=== PATIENT | female | born 1955 | race African-American/Black ===

== ENCOUNTER 2016-12-18 23:55 | Emergency (ER) | payer OTHER ==
[~2016-12-18] VITALS: Ht 157.5 cm; Wt 68.0 kg
[2016-12-19 00:14] VITALS: BP 96/56
[2016-12-19 01:23] LABS: BASOPHILS % (AUTO) 0.9 % (0.0-2.0); EOSINOPHILS % (AUTO) 1.2 % (0.0-3.0); LYMPHOCYTES % (AUTO) 29.8 % (20.0-45.0); MEAN CORPUSCULAR HEMOGLOBIN 31.9 PG (27.0-31.0); MEAN CORPUSCULAR HGB CONC 30.4 G/DL (32.0-36.0); MEAN CORPUSCULAR VOLUME 105 FL (80-99); MEAN PLATELET VOLUME 7.9 FL (6.5-10.1); MONOCYTES % (AUTO) 15.1 % (1.0-10.0); NEUTROPHILS % (AUTO) 52.9 % (45.0-75.0); PLATELET COUNT 126 K/UL (150-450); RED BLOOD COUNT 3.35 M/UL (4.20-5.40); RED CELL DISTRIBUTION WIDTH 18.5 % (11.6-14.8); WHITE BLOOD COUNT 9.5 K/UL (4.8-10.8)
[2016-12-19 01:39] LABS: CALCIUM 8.8 mg/dL (8.6-10.2); CREATININE 2.1 mg/dL (0.5-0.9); POTASSIUM 3.5 mEQ/L (3.4-4.9)
[2016-12-19 02:17] VITALS: BP 99/51
--- NOTE | 2016-12-19 02:37 | Emergency Room Report ---
History of Present Illness General Chief Complaint: General Complaint Source: Patient, Medical Record, EMS Present Illness HPI Is a 61-year-old female with history of renal failure on hemodialysis. She also has a history of chronic pain and diabetes. Patient presents with chief complaint of hypoglycemia. Per nursing staff was sedated and blood sugar was 35. She was asymptomatic without any altered mental status, diaphoresis, or any other complaint. She was given glucagon and transferred here. Patient denies any fever or chills. Denies any nausea vomiting. Asking for pain medication. No other complaint. Allergies: Coded Allergies: IBUPROFEN (Verified Allergy, Unknown, 12/18/16) PROCHLORPERAZINE (Verified Allergy, Unknown, 12/18/16) Patient History Past Medical History: see triage record, old chart reviewed Past Surgical History: other Pertinent Family History: none Social History: Denies: smoking Now: No Immunizations: other Reviewed Nursing Documentation: PMH: Agreed, PSxH: Agreed Nursing Documentation-PMH Past Medical History: No Stated History Hx Cardiac Problems: Yes - NH,CARDIOMYOPATHY Hx COPD: Yes Hx Diabetes: Yes Hx Dialysis: Yes - ESRD ,[id number] Review of Systems Eye: Denies: eye pain, blurred vision ENT: Denies: ear pain, nose congestion, throat swelling Respiratory: Denies: cough, shortness of breath Cardiovascular: Denies: chest pain, palpitations Gastrointestinal: Denies: abdominal pain, diarrhea, nausea, vomiting Musculoskeletal: Denies: back pain, joint pain Skin: Denies: rash Neurological: Denies: headache, numbness Endocrine: Denies: increased thirst, increased urine Hematologic/Lymphatic: Denies: easy bruising All Other Systems: negative except mentioned in HPI Physical Exam Vital Signs Date Time Temp Pulse Resp B/P (MAP) Pulse Ox O2 Delivery O2 Flow Rate FiO2 12/18/16 23:58 97.5 70 16 115/63 94 Nasal Cannula 2.0 vitals normal Sp02 EP Interpretation: reviewed, normal General Appearance: well appearing, no apparent distress, alert Head: normocephalic, atraumatic Eyes: bilateral eye PERRL, bilateral eye EOMI ENT: hearing grossly normal, normal pharynx Neck: full range of motion, supple, no meningismus Respiratory: chest non-tender, lungs clear, normal breath sounds Cardiovascular #1: regular rate, rhythm, no murmur Gastrointestinal: normal bowel sounds, non tender, no mass, no organomegaly, no bruit, non-distended Musculoskeletal: back normal, gait/station normal, normal range of motion Psychiatric: mood/affect normal Skin: warm/dry Medical Decision Making Diagnostic Impression: Primary Impression: Hypoglycemia ER Course Patient with hypoglycemia. No evidence of hypoglycemia here. No ABGs on the fdc as a sliding scale insulin. I fed her here. Blood glucose been normal range. We'll discharge back to the fdc. Lab Results Impression labs at baseline Last Vital Signs Date Time Temp Pulse Resp B/P (MAP) Pulse Ox O2 Delivery O2 Flow Rate FiO2 12/19/16 02:17 97.5 69 12 99/51 99 Nasal Cannula 2.0 Status: improved Disposition: [facility] Condition: Stable Referrals: NON PHYSICIAN (PCP) MAHAMED LUBIN M.D. Dec 19, 2016 02:37
[2016-12-19 03:14] VITALS: BP 92/67
== END 2016-12-19 03:14 ==
LOC: EDBD 23:55 → EMR 12-19 00:30
DX: E11.649 Type 2 diabetes mellitus with hypoglycemia without coma (principal); N18.6 End stage renal disease; Z99.2 Dependence on renal dialysis; Z88.6 Allergy status to analgesic agent; Z88.8 Allergy status to other drugs, medicaments and biological substances; I25.2 Old myocardial infarction; I42.9 Cardiomyopathy, unspecified; J44.9 Chronic obstructive pulmonary disease, unspecified
CPT/HCPCS: 36415; 80048; 82962; 85025; 99283

== ENCOUNTER 2016-12-23 08:06 | Inpatient (IN) | payer OTHER ==
[2016-12-23] VITALS (7 sets, daily range): BP systolic 86–140; BP diastolic 42–95
[~2016-12-23] VITALS: Ht 162.6 cm; Wt 90.7 kg
--- NOTE | 2016-12-23 08:13 | Emergency Room Report ---
History of Present Illness General Chief Complaint: Abnormal Labs Source: Patient, EMS Present Illness HPI The patient presents with altered level of consciousness. This is associated with a blood glucose of 29. Paramedics were unable to start an IV and they gave her glucagon IM route the patient's consciousness was much better at that time and she was able to tolerate some oral glucose solution. A second blood sugar was in the 50s. She states that she's been nauseated and not been eating well. The patient states this is his third visit for the same problem in the last 2 weeks. She's dialysis patient. She complains about neck and back pain and also a slight headache. She takes no current [place] for these problems. Review of our records reveal that she was here on December 19. At that time her blood sugar before coming in was 39. The her physician felt that she was on insulin and a diabetic. She denies both of these. Review of her medications do not reveal any anti-hyperglycemics or insulin at this time. She denies any fevers, vomiting, diarrhea and dysuria. She still makes urine. She's dialysis shunt on the left arm. The patient denies diabetes or taking any diabetic medications. Allergies: Coded Allergies: ASPIRIN (Unverified Allergy, Unknown, 12/23/16) IBUPROFEN (Verified Allergy, Unknown, 12/18/16) PROCHLORPERAZINE (Verified Allergy, Unknown, 12/18/16) Patient History Past Medical History: see triage record Social History Narrative [place] Reviewed Nursing Documentation: PMH: Agreed, PSxH: Agreed Review of Systems All Other Systems: negative except mentioned in HPI Physical Exam Vital Signs Date Time Temp Pulse Resp B/P (MAP) Pulse Ox O2 Delivery O2 Flow Rate FiO2 12/23/16 07:57 70 14 126/72 Sp02 EP Interpretation: reviewed, normal General Appearance: well appearing, no apparent distress, GCS 15, Chronically Ill Head: normocephalic Eyes: bilateral eye PERRL, bilateral eye conjunctivae pale ENT: moist mucus membranes Neck: supple Respiratory: lungs clear, normal breath sounds Cardiovascular #1: regular rate, rhythm, JVD, edema Cardiovascular #2: 2+ radial (R) Gastrointestinal: normal inspection, normal bowel sounds, non tender, no mass, non-distended Musculoskeletal: back normal, gait/station normal, normal range of motion Neurologic: alert, oriented x3 Skin: normal inspection, warm/dry Procedures Critical Care Time Critical Care Time Total Critical Care Time: 30 min bedside evaluation and treatment excludes procedures (EKG). Reason for critical care: recurrent hypoglycemia, hypotension, repeat evaluation of mentation Possible complications: hypotension, hypertension, NH, shock, arrhythmias, metabolic acidosis, end organ damage, respiratory failure. Interventions: D50W, EJ, fluid bolus, repeat evaluations Course: Patient with hypoglycemia. No IV. EJ. Tx with D50W. Recurrent hypoglycemia, repeat tx X2. Pain treated. Transient hypotension. Improved with fluid bolus. Consultations: nursing staff, EMS, HMO MD, admitting MD Performed by: Dr. Del Valle Tolerated well condition = serious Medical Decision Making Diagnostic Impression: Primary Impression: Hypoglycemia Additional Impressions: ESRD (end stage renal disease) on dialysis Transient hypotension Liver failure Qualified Codes: K72.00 - Acute and subacute hepatic failure without coma ER Course This dialysis nondiabetic patient presents with hypoglycemia. Differential includes occult infection, inadvertent medications, malnutrition, liver failure amongst others. Evaluation will be with EKG, chest x-ray and labs. Cardiac monitoring. Treatment of pain. The patient did have an IV started. An 18-gauge was inserted into the right EJ by me. Patient improved mentation. C/O pain (norco had been given). Morphine ordered. Labs with normal WBC, H/H, renal failure, elevated LFTs, elevated BNP and coags. :Lactate elevated - no evidence of infection. This is felt to be related to recurrent hypoglycema and liver dysfunction. No indications for antibiotics. BS dropped again. D50 repeated. Still low BS D50 repeated and D10W started. BP dropped and small bolus given. Dr. Dsouza ([facility]) states he believes or patient doing this to themselves. Patient denies this. Improved VS and mentation. Admit tele Dr. Haney. Laboratory Tests Test 12/23/16 08:15 12/23/16 12:20 White Blood Count 5.9 K/UL (4.8-10.8) Red Blood Count 3.47 M/UL (4.20-5.40) L Hemoglobin 10.7 G/DL (12.0-16.0) L Hematocrit 36.6 % (37.0-47.0) L Mean Corpuscular Volume 106 FL (80-99) H Mean Corpuscular Hemoglobin 31.0 PG (27.0-31.0) Mean Corpuscular Hemoglobin Concent 29.4 G/DL (32.0-36.0) L Red Cell Distribution Width 19.1 % (11.6-14.8) H Platelet Count 79 K/UL (150-450) L Mean Platelet Volume 8.5 FL (6.5-10.1) Neutrophils (%) (Auto) % (45.0-75.0) Lymphocytes (%) (Auto) % (20.0-45.0) Monocytes (%) (Auto) % (1.0-10.0) Eosinophils (%) (Auto) % (0.0-3.0) Basophils (%) (Auto) % (0.0-2.0) Differential Total Cells Counted 100 Neutrophils % (Manual) 60 % (45-75) Lymphocytes % (Manual) 27 % (20-45) Monocytes % (Manual) 11 % (1-10) H Eosinophils % (Manual) 1 % (0-3) Basophils % (Manual) 1 % (0-2) Band Neutrophils 0 % (0-8) Platelet Estimate Decreased L Platelet Morphology Normal Hypochromasia 2+ Anisocytosis 2+ Macrocytosis 1+ Prothrombin Time 16.4 SEC (9.30-11.50) H Prothrombin Time INR 1.6 (0.9-1.1) H PTT 41 SEC (23-33) H Sodium Level 127 mEQ/L (135-145) L Potassium Level 4.7 mEQ/L (3.4-4.9) Chloride Level 84 mEQ/L (98-107) L Carbon Dioxide Level 28 mEQ/L (20-30) Anion Gap 15 (5-15) Blood Urea Nitrogen 19 mg/dL (7-23) Creatinine 3.7 mg/dL (0.5-0.9) H Estimate Glomerular Filtration Rate 15.0 mL/min (>60) Glucose Level 130 mg/dL (74-106) H Lactic Acid Level 2.50 mmol/L (0.66-2.22) H 3.40 mmol/L (0.66-2.22) H Calcium Level 8.9 mg/dL (8.6-10.2) Total Bilirubin 2.2 mg/dL (0.0-1.2) H Direct Bilirubin 1.5 mg/dL (0.1-0.3) H Aspartate Amino Transferase (AST) 127 U/L (5-40) H Alanine Aminotransferase (ALT) 143 U/L (3-33) H Alkaline Phosphatase 165 U/L (35-104) H Total Creatine Kinase 79 U/L (26-140) Troponin I < 0.30 ng/mL (<=0.30) Pro-B-Type Natriuretic Peptide 87131 pg/mL (0-125) H Total Protein 6.8 g/dL (6.6-8.7) Albumin 3.6 g/dL (3.5-5.2) Globulin 3.2 g/dL Albumin/Globulin Ratio 1.1 (1.0-2.7) EKG Diagnostic Results Rate: normal Rhythm: NSR ST Segments: no acute changes - R axis Rhythm Strip Diag. Results EP Interpretation: yes Rhythm: NSR, no PVC's, no ectopy Chest X-Ray Diagnostic Results Chest X-Ray Diagnostic Results : Chest X-Ray Ordered: Yes # of Views/Limited/Complete: 1 View Indication: Other EP Interpretation: Yes Interpretation: no consolidation, no effusion, no pneumothorax, no acute cardiopulmonary disease Impression: No acute disease Electronically Signed by: Arian Del Valle MD Last Vital Signs Date Time Temp Pulse Resp B/P (MAP) Pulse Ox O2 Delivery O2 Flow Rate FiO2 12/23/16 21:00 97.1 74 19 140/95 94 Nasal Cannula 2.0 Status: improved Disposition: ADMITTED INPATIENT Condition: Serious Arian Del Valle M.D. Dec 23, 2016 08:13
[2016-12-23] MEDS ORDERED: Norco 5mg/325mg tab ORAL ONE (08:15)
[2016-12-23 08:38] LABS: MEAN CORPUSCULAR HGB CONC 29.4 G/DL (32.0-36.0); MEAN CORPUSCULAR VOLUME 106 FL (80-99); MEAN PLATELET VOLUME 8.5 FL (6.5-10.1); PLATELET COUNT 79 K/UL (150-450); RED BLOOD COUNT 3.47 M/UL (4.20-5.40); RED CELL DISTRIBUTION WIDTH 19.1 % (11.6-14.8); WHITE BLOOD COUNT 5.9 K/UL (4.8-10.8)
[2016-12-23] MEDS ORDERED: HEPARIN SO5000 UNIT2 SUBQ (08:46)
[2016-12-23] MEDS ORDERED: MAGNESIUM400 M1 PO (08:46)
[2016-12-23] MEDS ORDERED: DOCUSATE SODIU100 MG ORAL (08:46)
[2016-12-23] MEDS ORDERED: GABAPENTIN300 MG ORAL (08:46)
[2016-12-23] MEDS ORDERED: ALBUTEROL2.5 MG/3 M INH (08:46)
[2016-12-23] MEDS ORDERED: ZOLPIDEM TARTRAT5 MG ORAL (08:46)
[2016-12-23] MEDS ORDERED: FOLIC ACID1 MG ORAL (08:46)
[2016-12-23] MEDS ORDERED: ATENOLOL25 MG ORAL (08:46)
[2016-12-23] MEDS ORDERED: ISOSORBIDE MONO10 MG PO (08:46)
[2016-12-23] MEDS ORDERED: CYCLOBENZAPRINE10 MG ORAL (08:46)
[2016-12-23] MEDS ORDERED: CALCIUM500 M3 PO (08:46)
[2016-12-23] MEDS ORDERED: ATORVASTATIN CA20 MG ORAL (08:46)
[2016-12-23] MEDS ORDERED: CATAPRES0.1 MG ORAL (08:46)
[2016-12-23 08:49] LABS: ALANINE AMINOTRANSFERASE 143 U/L (3-33); ALBUMIN/GLOBULIN RATIO 1.1 (1.0-2.7); ANION GAP 15 (5-15); ASPARTATE AMINO TRANSFERASE 127 U/L (5-40); CALCIUM 8.9 mg/dL (8.6-10.2); CARBON DIOXIDE 28 mEQ/L (20-30); CHLORIDE 84 mEQ/L (98-107); CREATININE 3.7 mg/dL (0.5-0.9); HEMOLYSIS 12; POTASSIUM 4.7 mEQ/L (3.4-4.9); SODIUM 127 mEQ/L (135-145); TOTAL PROTEIN 6.8 g/dL (6.6-8.7); TROPONIN I < 0.30 ng/mL (<=0.30)
[2016-12-23 08:52] LABS: REFLEX LACTIC ACID YES OR NO YES
[2016-12-23 08:58] LABS: INR 1.6 (0.9-1.1); PROTHROMBIN TIME 16.4 SEC (9.30-11.50)
[2016-12-23 09:03] LABS: BILIRUBIN,DIRECT 1.5 mg/dL (0.1-0.3)
[2016-12-23 10:08] LABS: BAND NEUTROPHILS % (MANUAL) 0 % (0-8); BASOPHILS % (MANUAL) 1 % (0-2); EOSINOPHILS % (MANUAL) 1 % (0-3); LYMPHOCYTES % (MANUAL) 27 % (20-45); NEUTROPHILS % (MANUAL) 60 % (45-75); PLATELET ESTIMATE DECREASED; PLATELET MORPHOLOGY NORMAL; TOTAL CELLS COUNTED 100
[2016-12-23 10:09] LABS: ANISOCYTOSIS 2+; HYPOCHROMASIA 2+; MACROCYTES 1+
--- NOTE | 2016-12-23 11:10 | Diagnostic Imaging Report ---
Indication: Dyspnea Comparison: None A single view chest radiograph was obtained. Findings: No definite infiltrate or pulmonary vascular congestion identified. The hilar vessels are prominent. The heart is enlarged. The aorta is mildly enlarged consistent with atherosclerotic vascular disease. The bones are osteopenic. Impression: No acute disease
[2016-12-23] MEDS ORDERED: Morphine Sulfate 2mg/ml Inj IVP ONE (11:30)
[2016-12-23] MEDS ORDERED: NS 250 ML IVPB ONE (12:00)
[2016-12-23] MEDS ORDERED: Tubing IV Cassette IV ONE (12:01)
[2016-12-23] MEDS ORDERED: Dextrose 10% 1,000 ML IV SCH (12:45)
[2016-12-23] MEDS ORDERED: Mylanta II UD 30ml ORAL PRN (15:00)
[2016-12-23] MEDS ORDERED: Albuterol/Ipratropium 3ml neb HHN PRN (15:30)
[2016-12-23] MEDS: NovoLOG Insulin Flexpen SUBQ SCH ×2 (16:30→21:00)
[2016-12-23] MEDS: Cyclobenzaprine 10mg Tab ORAL SCH (18:28)
[2016-12-23] MEDS ORDERED: Miralax 17gm pkt ORAL PRN (21:00)
[2016-12-23] MEDS ORDERED: Zolpidem 5mg tab ORAL PRN (21:00)
[2016-12-23] MEDS ORDERED: Heparin 5000 units/ml inj SUBQ SCH (21:00)
--- NOTE | 2016-12-23 22:39 | History and Physical ---
History of Present Illness General Date patient seen: Dec 23, 2016 Reason for Hospitalization: Abnormal Labs Present Illness HPI 61 year old female on dialysis presented with altered level of consciousness with a blood glucose of 29. Paramedics were unable to start an IV and they gave her glucagon IM route the patient's consciousness was much better at that time and she was able to tolerate some oral glucose solution. A second blood sugar was in the 50s. She states that she's been nauseated and not been eating well. She denies any fevers, vomiting, diarrhea and dysuria. She still makes urine. She's dialysis shunt on the left arm. The patient denies diabetes or taking any diabetic medications. Allergies: Coded Allergies: ASPIRIN (Unverified Allergy, Unknown, 12/23/16) IBUPROFEN (Verified Allergy, Unknown, 12/18/16) PROCHLORPERAZINE (Verified Allergy, Unknown, 12/18/16) Medication History Scheduled Atenolol* (Tenormin*), 25 MG ORAL DAILY, (Reported) Atorvastatin Calcium* (Atorvastatin Calcium*), 10 MG ORAL BEDTIME, (Reported) Calcium Carbonate (Calcium), 667 MG PO TID, (Reported) Cyclobenzaprine Hcl* (Flexeril*), 5 MG ORAL THREE TIMES A DAY, (Reported) Folic Acid* (Folic Acid*), 1 MG ORAL DAILY, (Reported) Gabapentin* (Gabapentin*), 300 MG ORAL BID, (Reported) Heparin Sod (Porcine) (Heparin Sodium*), 5,000 UNITS SUBQ EVERY 12 HOURS, ( Reported) Isosorbide Mononitrate (Isosorbide Mononitrate), 30 MG PO DAILY, (Reported) Scheduled PRN Albuterol Sulfate* (Albuterol Sulfate Hhn*), 3 ML INH Q4H PRN for Shortness of Breath, (Reported) Clonidine Hcl* (Catapres*), 0.1 MG ORAL EVERY 4 HOURS PRN for For High Blood Pressure, (Reported) Docusate Sodium* (Docusate Sodium*), 100 MG ORAL TWICE A DAY PRN for Constipation, (Reported) Zolpidem Tartrate* (Zolpidem Tartrate*), 5 MG ORAL BEDTIME PRN for Insomnia, ( Reported) Miscellaneous Medications Magnesium Oxide (Magnesium), 400 MG PO, (Reported) Patient History Healthcare decision maker Resuscitation status Full Code Advanced Directive on File No Past Medical/Surgical History Past Medical/Surgical History: (1) Cholestasis (2) Hypoalbuminemia (3) Anemia (4) ESRD (end stage renal disease) on dialysis (5) Liver failure Review of Systems Constitutional: Reports: no symptoms Eye: Reports: no symptoms ENT: Reports: no symptoms Respiratory: Reports: no symptoms Cardiovascular: Reports: no symptoms Physical Exam General Appearance: WD/WN, no apparent distress Lines, tubes and drains: peripheral, central line HEENT: normocephalic, atraumatic Neck: non-tender, normal alignment Respiratory/Chest: chest wall non-tender, lungs clear Breasts: no masses Cardiovascular/Chest: normal peripheral pulses Abdomen: normal bowel sounds, non tender Genitourinary/Rectal: normal genital exam, heme negative stool Extremities: normal range of motion Last 24 Hour Vital Signs Date Time Temp Pulse Resp B/P (MAP) Pulse Ox O2 Delivery O2 Flow Rate FiO2 12/23/16 21:00 97.1 74 19 140/95 94 Nasal Cannula 2.0 12/23/16 20:00 97.1 19 140/95 94 Nasal Cannula 2.0 12/23/16 19:27 97.5 12/23/16 15:40 97.5 70 18 135/72 98 Nasal Cannula 2.0 12/23/16 15:25 72 16 124/83 97 Nasal Cannula 2.0 12/23/16 14:00 72 16 124/83 97 Nasal Cannula 2.0 12/23/16 12:30 68 16 124/87 95 Nasal Cannula 2.0 12/23/16 12:00 66 16 103/82 95 Nasal Cannula 2.0 12/23/16 11:30 72 16 86/42 95 Nasal Cannula 2.0 12/23/16 07:57 70 14 126/72 Intake and Output 12/23/16 12/24/16 19:00 07:00 Intake Total 570 ml Balance 570 ml Intake Oral 320 ml IV Total 250 ml # Bowel Movements 1 Laboratory Tests Test 12/23/16 08:15 12/23/16 12:20 White Blood Count 5.9 K/UL (4.8-10.8) Red Blood Count 3.47 M/UL (4.20-5.40) L Hemoglobin 10.7 G/DL (12.0-16.0) L Hematocrit 36.6 % (37.0-47.0) L Mean Corpuscular Volume 106 FL (80-99) H Mean Corpuscular Hemoglobin 31.0 PG (27.0-31.0) Mean Corpuscular Hemoglobin Concent 29.4 G/DL (32.0-36.0) L Red Cell Distribution Width 19.1 % (11.6-14.8) H Platelet Count 79 K/UL (150-450) L Mean Platelet Volume 8.5 FL (6.5-10.1) Neutrophils (%) (Auto) % (45.0-75.0) Lymphocytes (%) (Auto) % (20.0-45.0) Monocytes (%) (Auto) % (1.0-10.0) Eosinophils (%) (Auto) % (0.0-3.0) Basophils (%) (Auto) % (0.0-2.0) Differential Total Cells Counted 100 Neutrophils % (Manual) 60 % (45-75) Lymphocytes % (Manual) 27 % (20-45) Monocytes % (Manual) 11 % (1-10) H Eosinophils % (Manual) 1 % (0-3) Basophils % (Manual) 1 % (0-2) Band Neutrophils 0 % (0-8) Platelet Estimate Decreased L Platelet Morphology Normal Hypochromasia 2+ Anisocytosis 2+ Macrocytosis 1+ Prothrombin Time 16.4 SEC (9.30-11.50) H Prothromb Time International Ratio 1.6 (0.9-1.1) H Activated Partial Thromboplast Time 41 SEC (23-33) H Sodium Level 127 mEQ/L (135-145) L Potassium Level 4.7 mEQ/L (3.4-4.9) Chloride Level 84 mEQ/L (98-107) L Carbon Dioxide Level 28 mEQ/L (20-30) Anion Gap 15 (5-15) Blood Urea Nitrogen 19 mg/dL (7-23) Creatinine 3.7 mg/dL (0.5-0.9) H Estimat Glomerular Filtration Rate 15.0 mL/min (>60) Glucose Level 130 mg/dL (74-106) H Lactic Acid Level 2.50 mmol/L (0.66-2.22) H 3.40 mmol/L (0.66-2.22) H Calcium Level 8.9 mg/dL (8.6-10.2) Total Bilirubin 2.2 mg/dL (0.0-1.2) H Direct Bilirubin 1.5 mg/dL (0.1-0.3) H Aspartate Amino Transf (AST/SGOT) 127 U/L (5-40) H Alanine Aminotransferase (ALT/SGPT) 143 U/L (3-33) H Alkaline Phosphatase 165 U/L (35-104) H Total Creatine Kinase 79 U/L (26-140) Troponin I < 0.30 ng/mL (<=0.30) Pro-B-Type Natriuretic Peptide 50176 pg/mL (0-125) H Total Protein 6.8 g/dL (6.6-8.7) Albumin 3.6 g/dL (3.5-5.2) Globulin 3.2 g/dL Albumin/Globulin Ratio 1.1 (1.0-2.7) Height (Feet): 5 Height (Inches): 4.00 Weight (Pounds): 200 Medications Current Medications Medications (Trade) Dose Ordered Sig/Donald Route PRN Reason Start Time Stop Time Status Last Admin Dose Admin Acetaminophen (Tylenol) 650 mg Q4H PRN ORAL fever>100.5 12/23/16 15:00 01/22/17 14:59 Al Hydroxide/Mg Hydroxide (Mylanta II) 30 ml Q6H PRN ORAL dyspepsia 12/23/16 15:00 01/22/17 14:59 Albuterol/ Ipratropium (DuoNeb 0.5-3(2.5)mg/3ml) 3 ml Q6H PRN HHN dyspnea 12/23/16 15:30 12/28/16 15:29 Atenolol (Tenormin) 25 mg DAILY ORAL 12/24/16 09:00 01/23/17 08:59 Atorvastatin Calcium (Lipitor) 10 mg BEDTIME ORAL 12/23/16 21:00 01/22/17 20:59 12/23/16 21:41 Clonidine HCl (Catapres) 0.1 mg Q4H PRN ORAL for sbp more than 160 12/23/16 15:00 01/22/17 14:59 Cyclobenzaprine HCl (Flexeril) 5 mg THREE TIMES A DAY ORAL 12/23/16 18:00 01/22/17 17:59 12/23/16 18:28 Dextrose (Dextrose 50%) STAT PRN IV Hypoglycemia 12/23/16 15:00 01/22/17 14:59 Furosemide (Lasix) 100 mg Q8H PRN IV dyspnea 12/23/16 15:30 01/22/17 15:29 Gabapentin (Neurontin) 300 mg BID ORAL 12/23/16 18:00 01/22/17 17:59 12/23/16 18:23 Insulin Aspart (NovoLOG) BEFORE MEALS AND HS SUBQ 12/23/16 16:30 01/22/17 16:29 Morphine Sulfate (Morphine Sulfate) 1 mg Q4H PRN IVP For Pain 12/23/16 15:30 12/30/16 15:29 Ondansetron HCl (Zofran) 4 mg Q6H PRN IVP Nausea & Vomiting 12/23/16 15:00 01/22/17 14:59 Polyethylene Glycol (Miralax) 17 gm HSPRN PRN ORAL Constipation 12/23/16 21:00 01/22/17 20:59 Zolpidem Tartrate (Ambien) 5 mg HSPRN PRN ORAL Insomnia 12/23/16 21:00 12/30/16 20:59 Assessment/Plan Problem List: (1) Encephalopathy acute ICD Codes: G93.40 - Encephalopathy, unspecified SNOMED: 3844153 (2) Hypoglycemia ICD Codes: E16.2 - Hypoglycemia, unspecified SNOMED: 927019681 (3) Anemia ICD Codes: D64.9 - Anemia, unspecified SNOMED: 525524841 (4) Coagulopathy ICD Codes: D68.9 - Coagulation defect, unspecified SNOMED: 21232725 (5) Liver failure ICD Codes: K72.90 - Hepatic failure, unspecified without coma SNOMED: 84954946 Qualifiers: Qualified Codes: K72.00 - Acute and subacute hepatic failure without coma (6) ESRD (end stage renal disease) on dialysis ICD Codes: N18.6 - End stage renal disease; Z99.2 - Dependence on renal dialysis SNOMED: 406339241 Assessment/Plan d5 IV fluids HD by nephrology endocrinology w/ru anemia w/u symptomatic treatment SANCHEZ MURGUIA Dec 23, 2016 22:39
[2016-12-24] VITALS: BP 125/96
[2016-12-24 03:39] LABS: KETONES,URINE NEGATIVE (NEGATIVE); LEUKOCYTE ESTERASE ,URINE 3+ (NEGATIVE); NITRITE,URINE NEGATIVE (NEGATIVE); PH,URINE 5 (4.5-8.0); PROTEIN,URINE 2+ (NEGATIVE); UROBILINOGEN,URINE 4 MG/DL (0.0-1.0)
[2016-12-24 04:00] VITALS: BP 122/88
[2016-12-24 04:36] LABS: APPEARANCE,URINE SLIGHTLY CLOUDY
[2016-12-24 04:53] LABS: BACTERIA,URINE FEW /HPF; SQUAMOUS EPITHELIAL CELL,UR MANY /LPF (NONE/OCC)
[2016-12-24 04:54] LABS: ICTOTEST POSITIVE; YEAST,URINE MANY /HPF
[2016-12-24] MEDS: NovoLOG Insulin Flexpen SUBQ SCH ×4 (06:23→20:35)
[2016-12-24 07:08] LABS: INR 1.5 (0.9-1.1); PROTHROMBIN TIME 15.5 SEC (9.30-11.50)
[2016-12-24 07:24] LABS: LACTATE DEHYDROGENASE 320 U/L (135-230)
[2016-12-24 07:28] LABS: THYROID STIMULATING HORMONE 5.89 uIU/mL (0.300-4.500)
[2016-12-24 07:29] LABS: MEAN CORPUSCULAR HEMOGLOBIN 31.9 PG (27.0-31.0); MEAN CORPUSCULAR HGB CONC 30.3 G/DL (32.0-36.0); MEAN CORPUSCULAR VOLUME 105 FL (80-99); PLATELET COUNT 86 K/UL (150-450); RED BLOOD COUNT 3.41 M/UL (4.20-5.40); RED CELL DISTRIBUTION WIDTH 18.8 % (11.6-14.8); WHITE BLOOD COUNT 5.9 K/UL (4.8-10.8)
[2016-12-24 07:31] LABS: CALCIUM 9.6 mg/dL (8.6-10.2); CHOLESTEROL/HDL RATIO 6.1 (3.3-4.4); CREATININE 4.1 mg/dL (0.5-0.9); GLOMERULAR FILTRATION RATE 13.5 mL/min (>60); POTASSIUM 5.3 mEQ/L (3.4-4.9); TOTAL PROTEIN 7.2 g/dL (6.6-8.7)
[2016-12-24 07:43] LABS: HEMOLYSIS 30; IRON 103 ug/dL (37-145); TOTAL IRON BINDING CAPACITY 200 ug/dL (250-400)
[2016-12-24 07:47] LABS: BILIRUBIN,DIRECT 1.4 mg/dL (0.1-0.3)
[2016-12-24 07:57] LABS: HEMOGLOBIN A1C 4.6 % (< 6.0)
[2016-12-24 08:11] LABS: PATH BLOOD SMEAR/OMC SEND TO PATHOLOGIST; RETICULOCYTE COUNT 2.3 % (0.0-2.0)
[2016-12-24 08:21] VITALS: BP 122/64
[2016-12-24] MEDS: Atenolol 25mg tab ORAL SCH (08:23)
[2016-12-24] MEDS: Cyclobenzaprine 10mg Tab ORAL SCH ×3 (08:25→18:48)
[2016-12-24 09:14] LABS: ERYTHROCYTE SEDIMENTATION RATE 18 MM/HR (0-30)
[2016-12-24 09:38] LABS: ANISOCYTOSIS 1+; BAND NEUTROPHILS % (MANUAL) 0 % (0-8); BASOPHILS % (MANUAL) 0 % (0-2); BURR CELLS 1+; EOSINOPHILS % (MANUAL) 1 % (0-3); HYPOCHROMASIA 1+; LYMPHOCYTES % (MANUAL) 49 % (20-45); MACROCYTES 1+; NEUTROPHILS % (MANUAL) 39 % (45-75); NUCLEATED RED BLOOD CELLS 1 /100 WBC; PLATELET ESTIMATE DECREASED; PLATELET MORPHOLOGY NORMAL; TARGET CELLS 1+; TEAR DROP CELLS 1+; TOTAL CELLS COUNTED 100
--- NOTE | 2016-12-24 10:16 | Consultation ---
Consult Note Consult Note asked to eval for dialysis management- poor historian- The patient presents with altered level of consciousness. This is associated with a blood glucose of 29. Paramedics were unable to start an IV and they gave her glucagon IM route the patient's consciousness was much better at that time and she was able to tolerate some oral glucose solution. A second blood sugar was in the 50s. She states that she's been nauseated and not been eating well. The patient states this is his third visit for the same problem in the last 2 weeks. She's dialysis patient. She complains about neck and back pain and also a slight headache. She takes no current [place] for these problems. Review of our records reveal that she was here on December 19. At that time her blood sugar before coming in was 39. The her physician felt that she was on insulin and a diabetic. She denies both of these. Review of her medications do not reveal any anti-hyperglycemics or insulin at this time. She denies any fevers, vomiting, diarrhea and dysuria. She still makes urine. She's dialysis shunt on the left arm. The patient denies diabetes or taking any diabetic medications. Allergies: Coded Allergies: ASPIRIN (Unverified Allergy, Unknown, 12/23/16) IBUPROFEN (Verified Allergy, Unknown, 12/18/16) PROCHLORPERAZINE (Verified Allergy, Unknown, 12/18/16) interviewed- examined- data reviewed Assessment/Plan ESRD (end stage renal disease) on dialysis, today Na 125 and K high Transient hypotension on admit leading to encephalopathy Liver failure, elevated LFTs Anemia Plan: HD and UF today trini Keep BP and BS in check per orders diet to renal gastric support LIANA STEVENS Dec 24, 2016 10:16
[2016-12-24 12:20] VITALS: BP 95/66
--- NOTE | 2016-12-24 13:25 | Wound Care Consultation ---
Wound Assessment Wound Assessment : Wound Number: 1 Wound Present on Admission: Yes New Wound: No Status Change of Wound: No Wound Location Body Site Modif: right, lower, anterior Wound Location Body Site: knee Wound Type: traumatic injury Edmundo Test: Does not Edmundo Wound Thickness: Full Thickness Wound Length: 3.5 Wound Width: 6.5 Wound Depth: utd Percent of Wound Black/Brown: 100 - eschar Wound Drainage Amount: None Wound Drainage Odor: None/Absent Tissue Surrounding Wound: Indurated Wound General Appearance: Blackened Wound Comment #1 Right anterior lower knee area, wound with black soft eschar adhered to wound bed. According to Pt, she had a fall incident and she injured her knee. Recommendation -Cleanse with saline, pat dry, paint with Betadine, cover with bordered gauze daily and PRN soiled/dislodged -Keep clean and dry -Turn and reposition -Optimize nutrition -Assess and f/u accordingly for any changes ALEJA BYRNE RN Dec 24, 2016 13:25
--- NOTE | 2016-12-24 15:02 | Diagnostic Imaging Report ---
Indication: Abnormal renal function tests Technique: Grayscale and duplex images of the kidneys, retroperitoneum, and bladder were obtained. Comparison:None Findings: Right kidney measures 8.8 cm in length. Left kidney measures 10.1 cm in length. Right kidney demonstrates increased echogenicity. Left kidney demonstrates normal echogenicity. No hydronephrosis. The right kidney demonstrates multiple cysts.. Normal inferior vena cava. Bladder is normal. Incidentally noted is a small amount of ascites fluid. There is incidental finding of gallstones. The gallbladder is nondistended, but the gallbladder wall appears markedly thickened. The common bile duct is dilated, measuring 10 mm in diameter. Technologist reports sonographic Brantley's sign is normal Impression: This negative for hydronephrosis Echogenic right kidney, likely indicative of medical renal disease Right renal cysts Incidental finding of ascites Incidental finding of gallstones. There is gallbladder wall thickening. Probably due to whatever process is causing ascites, suggest hepatocellular disease, but acute cholecystitis is not excludable. Consider nuclear medicine hepatobiliary scan if there is high clinical suspicion Mildly dilated common bile duct. Correlate with liver function tests, considered hepatobiliary nuclear scan if there is high clinical suspicion.
[2016-12-24 16:00] VITALS: BP 131/97
--- NOTE | 2016-12-24 18:39 | Pulmonology Progress Note ---
Assessment/Plan Problems: (1) ESRD (end stage renal disease) on dialysis (2) Hypoglycemia Assessment/Plan w/u in progress sliding scale endo evaluation pending D50 for hypoglycemia Subjective ROS Limited/Unobtainable: No Interval Events: no new complains Allergies: Coded Allergies: ASPIRIN (Unverified Allergy, Unknown, 12/23/16) IBUPROFEN (Verified Allergy, Unknown, 12/18/16) PROCHLORPERAZINE (Verified Allergy, Unknown, 12/18/16) Objective Last 24 Hour Vital Signs Date Time Temp Pulse Resp B/P (MAP) Pulse Ox O2 Delivery O2 Flow Rate FiO2 12/24/16 16:15 Nasal Cannula 2.0 12/24/16 16:00 97.0 75 18 131/97 99 Nasal Cannula 3.0 12/24/16 14:13 Nasal Cannula 2.0 12/24/16 12:20 97.9 72 20 95/66 100 Nasal Cannula 2.0 12/24/16 09:24 98.0 12/24/16 08:23 76 122/64 12/24/16 08:21 98.0 76 17 122/64 99 Nasal Cannula 2.0 12/24/16 08:21 97.9 78 18 122/64 99 Room Air 12/24/16 04:00 97.5 71 20 122/88 93 Nasal Cannula 2.0 12/24/16 00:00 97.2 70 21 125/96 93 Nasal Cannula 2.0 12/23/16 21:00 97.1 74 19 140/95 94 Nasal Cannula 2.0 12/23/16 20:00 97.1 19 140/95 94 Nasal Cannula 2.0 Intake and Output 12/24/16 12/25/16 19:00 07:00 Intake Total 480 ml Output Total 2545 ml Balance -2065 ml Intake Oral 480 ml Output Urine Total 0 ml Hemodialysis UF 2545 ml General Appearance: WD/WN, no acute distress HEENT: atraumatic Respiratory/Chest: chest wall non-tender, lungs clear Breasts: no masses Cardiovascular: normal peripheral pulses Abdomen: normal bowel sounds, soft, non tender Genitourinary: normal external genitalia Extremities: no cyanosis Neurologic/Psychiatric: compliance lead II-XII grossly normal Laboratory Tests 12/24/16 03:23: Urine Color Eloisa, Urine Appearance Slightly cloudy, Urine pH 5, Urine Specific [place] 1.015, Urine Protein 2+H, Urine Glucose (UA) Negative, Urine Ketones Negative, Urine Occult Blood 2+H, Urine Nitrite Negative, Urine Bilirubin 2+H, Urine Ictotest Positive, Urine Urobilinogen 4H, Urine Leukocyte Esterase 3+H, Urine RBC 2-4H, Urine WBC 2-4, Urine Squamous Epithelial Cells ManyH, Urine Bacteria Few, Urine Yeast ManyH, Urine Eosinophils Few, Urine Random Sodium 11, Urine Potassium Timed 88 12/24/16 06:15: White Blood Count 5.9, Red Blood Count 3.41L, Hemoglobin 10.9L, Hematocrit 36.0L , Mean Corpuscular Volume 105H, Mean Corpuscular Hemoglobin 31.9H, Mean Corpuscular Hemoglobin Concent 30.3L, Red Cell Distribution Width 18.8H, Platelet Count 86L, Mean Platelet Volume 11.0H, Neutrophils (%) (Auto) , Lymphocytes (%) (Auto) , Monocytes (%) (Auto) , Eosinophils (%) (Auto) , Basophils (%) (Auto) , Differential Total Cells Counted 100, Neutrophils % ( Manual) 39L, Lymphocytes % (Manual) 49H, Monocytes % (Manual) 11H, Eosinophils % (Manual) 1, Basophils % (Manual) 0, Band Neutrophils 0, Nucleated Red Blood Cells 1, Platelet Estimate DecreasedL, Platelet Morphology Normal, Hypochromasia 1+, Anisocytosis 1+, Macrocytosis 1+, Target Cells 1+, Tear Drop Cells 1+, Prasanna Cells 1+, Erythrocyte Sedimentation Rate 18, Reticulocyte Count 2.3H, Prothrombin Time 15.5H, Prothromb Time International Ratio 1.5H, Activated Partial Thromboplast Time 42H, Sodium Level 125L, Potassium Level 5.3H , Chloride Level 82L, Carbon Dioxide Level 31H, Anion Gap 12, Blood Urea Nitrogen 23, Creatinine 4.1H, Estimat Glomerular Filtration Rate 13.5, Glucose Level 69L, Hemoglobin A1c 4.6, Uric Acid 7.0, Calcium Level 9.6, Iron Level 103 , Total Iron Binding Capacity 200L, Percent Iron Saturation 52H, Unsaturated Iron Binding 97L, Total Bilirubin 2.2H, Direct Bilirubin 1.4H, Aspartate Amino Transf (AST/SGOT) 102H, Alanine Aminotransferase (ALT/SGPT) 125H, Alkaline Phosphatase 179H, Lactate Dehydrogenase 320H, Total Creatine Kinase 76, Total Protein 7.2, Albumin 3.7, Globulin 3.5, Albumin/Globulin Ratio 1.0, Triglycerides Level 81, Cholesterol Level 116, LDL Cholesterol 81, HDL Cholesterol 19, Cholesterol/HDL Ratio 6.1H, Carcinoembryonic Antigen 4.9H, Vitamin B12 Level > 2000H, Folate [Pending], Thyroid Stimulating Hormone (TSH) 5.890H Current Medications Medications (Trade) Dose Ordered Sig/Donald Route PRN Reason Start Time Stop Time Status Last Admin Dose Admin Acetaminophen (Tylenol) 650 mg Q4H PRN ORAL fever>100.5 12/23/16 15:00 01/22/17 14:59 Albuterol/ Ipratropium (DuoNeb 0.5-3(2.5)mg/3ml) 3 ml Q6H PRN HHN dyspnea 12/23/16 15:30 12/28/16 15:29 Atenolol (Tenormin) 25 mg DAILY ORAL 12/24/16 09:00 01/23/17 08:59 12/24/16 08:23 Atorvastatin Calcium (Lipitor) 10 mg BEDTIME ORAL 12/23/16 21:00 01/22/17 20:59 12/23/16 21:41 Clonidine HCl (Catapres) 0.1 mg Q4H PRN ORAL for sbp more than 160 12/23/16 15:00 01/22/17 14:59 Cyclobenzaprine HCl (Flexeril) 5 mg THREE TIMES A DAY ORAL 12/23/16 18:00 01/22/17 17:59 12/24/16 08:25 Dextrose (Dextrose 50%) STAT PRN IV Hypoglycemia 12/23/16 15:00 01/22/17 14:59 12/24/16 17:51 Gabapentin (Neurontin) 300 mg BID ORAL 12/23/16 18:00 01/22/17 17:59 12/24/16 08:22 Insulin Aspart (NovoLOG) BEFORE MEALS AND HS SUBQ 12/23/16 16:30 01/22/17 16:29 Morphine Sulfate (Morphine Sulfate) 1 mg Q4H PRN IVP For Pain 12/23/16 15:30 12/30/16 15:29 Ondansetron HCl (Zofran) 4 mg Q6H PRN IVP Nausea & Vomiting 12/23/16 15:00 01/22/17 14:59 Pantoprazole (Protonix) 40 mg DAILY ORAL 12/24/16 10:30 01/23/17 10:29 12/24/16 11:27 Polyethylene Glycol (Miralax) 17 gm HSPRN PRN ORAL Constipation 12/23/16 21:00 01/22/17 20:59 Zolpidem Tartrate (Ambien) 5 mg HSPRN PRN ORAL Insomnia 12/23/16 21:00 12/30/16 20:59 SANCHEZ MURGUIA Dec 24, 2016 18:39
[2016-12-24] MEDS: Morphine Sulfate 2mg/ml Inj IVP PRN (19:52)
[2016-12-24 20:00] VITALS: BP 119/74
--- NOTE | 2016-12-24 23:58 | Consultation ---
Consult Note Consult Note ID DIC [id number] LORENZA HUSTON M.D. Dec 24, 2016 23:58
[2016-12-25] VITALS: BP 92/57
[2016-12-25] MEDS ORDERED: Azithromycin 500mg Inj IV ONE (01:14)
[2016-12-25] MEDS: Azithromycin 500 MG in D5W 275 ML IV SCH (01:40)
[2016-12-25 04:00] VITALS: BP 103/64
[2016-12-25] MEDS: Morphine Sulfate 2mg/ml Inj IVP PRN (04:01)
[2016-12-25] MEDS: NovoLOG Insulin Flexpen SUBQ SCH ×3 (06:05→16:30)
[2016-12-25 07:19] LABS: MEAN CORPUSCULAR HEMOGLOBIN 31.2 PG (27.0-31.0); MEAN CORPUSCULAR HGB CONC 29.7 G/DL (32.0-36.0); MEAN CORPUSCULAR VOLUME 105 FL (80-99); MEAN PLATELET VOLUME 11.9 FL (6.5-10.1); PLATELET COUNT 71 K/UL (150-450); RED BLOOD COUNT 3.45 M/UL (4.20-5.40); RED CELL DISTRIBUTION WIDTH 18.9 % (11.6-14.8); WHITE BLOOD COUNT 6.2 K/UL (4.8-10.8)
[2016-12-25 07:39] LABS: ALANINE AMINOTRANSFERASE 96 U/L (3-33); ALBUMIN/GLOBULIN RATIO 0.9 (1.0-2.7); ANION GAP 12 (5-15); ASPARTATE AMINO TRANSFERASE 78 U/L (5-40); CARBON DIOXIDE 30 mEQ/L (20-30); CHLORIDE 85 mEQ/L (98-107); CREATININE 3.3 mg/dL (0.5-0.9); CRP QUANT 4.2 mg/dL (< 0.5); GLOMERULAR FILTRATION RATE 17.2 mL/min (>60); HEMOLYSIS 6; MAGNESIUM 2.1 mg/dL (1.7-2.5); PHOSPHORUS 3.6 mg/dL (2.5-4.8); POTASSIUM 4.8 mEQ/L (3.4-4.9); SODIUM 127 mEQ/L (135-145); TOTAL PROTEIN 6.8 g/dL (6.6-8.7); URIC ACID 5.8 mg/dL (3.0-7.5)
[2016-12-25 08:00] VITALS: BP 116/64
[2016-12-25 08:11] LABS: BILIRUBIN,DIRECT 1.6 mg/dL (0.1-0.3)
--- NOTE | 2016-12-25 08:31 | Consultation ---
DATE OF CONSULTATION: 12/25/2016 INFECTIOUS DISEASES CONSULTATION CONSULTING PHYSICIAN: Shady Bowles M.D. REFERRING PHYSICIAN: Darius Haney M.D. Reason For Consultation: Evaluation of the patient for possible sepsis. History Of Present Illness: The patient is a 61-year-old female, who was brought to the hospital due to altered level of consciousness. The patient was found to have hypoglycemia with blood glucose of 29. The patient responded with glucagon IM injection. Infectious Diseases consultation has been requested for evaluation of the patient for possible pneumonia versus sepsis. The patient has no fever or chills, however, the patient is complaining of having some cough in the last two weeks before admission with white sputum production. Past Medical History: End-stage renal disease, on hemodialysis, COPD, and diabetes. MEDICATIONS: Off of antibiotics. ALLERGIES: Aspirin, ibuprofen, prochlorperazine. SOCIAL HISTORY: Negative for alcohol, drug abuse, or smoking. FAMILY HISTORY: Noncontributory. PHYSICAL EXAMINATION: Vital Signs: Temperature 97 degrees, blood pressure 190/74, pulse 72, and respiratory rate 18. HEENT: No pale conjunctivae. No icterus. NECK: No lymphadenopathy. CHEST: Clear. HEART: S1 and S2. ABDOMEN: Soft. EXTREMITIES: No cyanosis. NEUROLOGIC: Awake and alert. Laboratory and diagnostic Data: White cells 5.9, hemoglobin 10.9, and platelets 86,000. UA unremarkable. BUN 23 and creatinine 4.4. AST 102, ALT 125, and alkaline phosphatase 179. Ultrasound of the kidney, ascites, gallstone, and gallbladder wall thickening. Chest x-ray, [facility]. ASSESSMENT: 1. The patient is a 61-year-old female with chronic obstructive pulmonary disease exacerbation/bronchitis. 2. Transaminitis, rule out chronic hepatitis. 3. Rule out cholecystitis, ultrasound shows gallbladder wall thickening and gallstones. 4. Rule out bacteremia in view of being on hemodialysis. PLAN: 1. We will start the patient on IV Zithromax. 2. Monitor CBC. 3. Monitor BMP. 4. HIDA scan. 5. Hepatitis panel. 6. Monitor blood culture. 7. Based on the patient's clinical course and labs, we will do further recommendation. Thank you, Dr. Haney, for allowing me to participate in the care of this patient. I will follow the patient with you during this hospitalization. Shady Bowles M.D. DR: ERICA JOB#: [id number] CC:
[2016-12-25 08:55] LABS: BAND NEUTROPHILS % (MANUAL) 0 % (0-8); BASOPHILS % (MANUAL) 0 % (0-2); EOSINOPHILS % (MANUAL) 4 % (0-3); HYPOCHROMASIA 1+; LYMPHOCYTES % (MANUAL) 40 % (20-45); NEUTROPHILS % (MANUAL) 52 % (45-75); PLATELET ESTIMATE DECREASED; PLATELET MORPHOLOGY NORMAL; POLYCHROMASIA 1+; TOTAL CELLS COUNTED 100
[2016-12-25 08:56] LABS: ANISOCYTOSIS 1+; MACROCYTES 1+
[2016-12-25] MEDS: Atenolol 25mg tab ORAL SCH (09:00)
[2016-12-25] MEDS: Cyclobenzaprine 10mg Tab ORAL SCH ×3 (09:33→18:12)
--- NOTE | 2016-12-25 09:51 | General Progress Note ---
Assessment/Plan Status: unchanged Assessment/Plan ESRD (end stage renal disease) on dialysis, today Na 127 and K now normal Transient hypotension on admit leading to encephalopathy, improving Liver failure, elevated LFTs Anemia Plan: HD and UF in am again Keep BP and BS in check per orders diet to renal gastric support Subjective ROS Limited/Unobtainable: No Constitutional: Reports: malaise, weakness Gastrointestinal/Abdominal: Reports: abdominal pain Allergies: Coded Allergies: ASPIRIN (Unverified Allergy, Unknown, 12/23/16) IBUPROFEN (Verified Allergy, Unknown, 12/18/16) PROCHLORPERAZINE (Verified Allergy, Unknown, 12/18/16) Objective Last 24 Hour Vital Signs Date Time Temp Pulse Resp B/P (MAP) Pulse Ox O2 Delivery O2 Flow Rate FiO2 12/25/16 09:00 71 116/64 12/25/16 08:00 97.9 71 17 116/64 95 Room Air 12/25/16 04:00 98.1 75 18 103/64 95 Room Air 12/25/16 00:00 97.3 78 20 92/57 99 Nasal Cannula 2.0 12/24/16 20:00 97.7 77 20 119/74 97 Room Air 12/24/16 16:15 Nasal Cannula 2.0 12/24/16 16:00 97.0 75 18 131/97 99 Nasal Cannula 3.0 12/24/16 14:13 Nasal Cannula 2.0 12/24/16 12:20 97.9 72 20 95/66 100 Nasal Cannula 2.0 Laboratory Tests 12/25/16 06:20: White Blood Count 6.2, Red Blood Count 3.45L, Hemoglobin 10.8L, Hematocrit 36.2L , Mean Corpuscular Volume 105H, Mean Corpuscular Hemoglobin 31.2H, Mean Corpuscular Hemoglobin Concent 29.7L, Red Cell Distribution Width 18.9H, Platelet Count 71L, Mean Platelet Volume 11.9H, Neutrophils (%) (Auto) , Lymphocytes (%) (Auto) , Monocytes (%) (Auto) , Eosinophils (%) (Auto) , Basophils (%) (Auto) , Differential Total Cells Counted 100, Neutrophils % ( Manual) 52, Lymphocytes % (Manual) 40, Monocytes % (Manual) 4, Eosinophils % ( Manual) 4H, Basophils % (Manual) 0, Band Neutrophils 0, Platelet Estimate DecreasedL, Platelet Morphology Normal, Polychromasia 1+, Hypochromasia 1+, Anisocytosis 1+, Macrocytosis 1+, Sodium Level 127L, Potassium Level 4.8, Chloride Level 85L, Carbon Dioxide Level 30, Anion Gap 12, Blood Urea Nitrogen 18, Creatinine 3.3H, Estimat Glomerular Filtration Rate 17.2, Glucose Level 133H , Uric Acid 5.8, Calcium Level 9.0, Phosphorus Level 3.6, Magnesium Level 2.1, Total Bilirubin 2.4H, Direct Bilirubin 1.6H, Gamma Glutamyl Transpeptidase 121H , Aspartate Amino Transf (AST/SGOT) 78H, Alanine Aminotransferase (ALT/SGPT) 96H , Alkaline Phosphatase 172H, Total Creatine Kinase 79, C-Reactive Protein, Quantitative 4.2H, Pro-B-Type Natriuretic Peptide [id number], Total Protein 6.8, Albumin 3.3L, Globulin 3.5, Albumin/Globulin Ratio 0.9L, Hepatitis A IgM Antibody [Pending], Hepatitis B Surface Antigen [Pending], Hepatitis B Core IgM Antibody [Pending], Hepatitis C Antibody [Pending] Height (Feet): 5 Height (Inches): 4.00 Weight (Pounds): 200 General Appearance: lethargic, mild distress Cardiovascular: normal rate Respiratory/Chest: decreased breath sounds Abdomen: other - obese Objective other PE not changed LIANA STEVENS Dec 25, 2016 09:51
--- NOTE | 2016-12-25 11:57 | GI Initial Consult Note ---
History of Present Illness General Date patient seen: Dec 25, 2016 Time patient seen: 11:56 Reason for Hospitalization: Abnormal Labs Referring physician: SANCHEZ MURGUIA Reason for Consultation: ABNORMAL LFTs Present Illness HPI The patient presents with altered level of consciousness. This is associated with a blood glucose of 29. Paramedics were unable to start an IV and they gave her glucagon IM route the patient's consciousness was much better at that time and she was able to tolerate some oral glucose solution. A second blood sugar was in the 50s. She states that she's been nauseated and not been eating well. The patient states this is his third visit for the same problem in the last 2 weeks. She's dialysis patient. She complains about neck and back pain and also a slight headache. She takes no current [place] for these problems. Review of our records reveal that she was here on December 19. At that time her blood sugar before coming in was 39. The her physician felt that she was on insulin and a diabetic. She denies both of these. Review of her medications do not reveal any anti-hyperglycemics or insulin at this time. She denies any fevers, vomiting, diarrhea and dysuria. She still makes urine. She's dialysis shunt on the left arm. The patient denies diabetes or taking any diabetic medications. GI Consult. HPI as noted above. GI consulted for abdominal LFTs. ROS limited , patient seen on floor awake A&O NAD with no active s/sx of N/V/D. The patient presents today with anemia, elevated LFTs, elevated GGT, elevated iron levels, elevated CEA, and hypoalbuminemia. Unknown history of endoscopic procedures. Home Meds Reported Medications Calcium Carbonate (CALCIUM) 500 Mg Tab.chew, 667 MG PO TID, TAB 12/23/16 Atenolol* (TENORMIN*) 25 Mg Tablet, 25 MG ORAL DAILY, TAB 12/23/16 Zolpidem Tartrate* (ZOLPIDEM TARTRATE*) 5 Mg Tablet, 5 MG ORAL BEDTIME Y for Insomnia, TAB 0 Refills 12/23/16 Cyclobenzaprine Hcl* (FLEXERIL*) 10 Mg Tablet, 5 MG ORAL THREE TIMES A DAY, TAB 12/23/16 Gabapentin* (GABAPENTIN*) 300 Mg Capsule, 300 MG ORAL BID, CAP 12/23/16 Folic Acid* (FOLIC ACID*) 1 Mg Tablet, 1 MG ORAL DAILY, TAB 12/23/16 Atorvastatin Calcium* (ATORVASTATIN CALCIUM*) 20 Mg Tablet, 10 MG ORAL BEDTIME, TAB 12/23/16 Isosorbide Mononitrate (ISOSORBIDE MONONITRATE) 10 Mg Tablet, 30 MG PO DAILY, TAB 12/23/16 Magnesium Oxide (MAGNESIUM) 400 Mg Capsule, 400 MG PO, CAP 12/23/16 Albuterol Sulfate* (ALBUTEROL SULFATE HHN*) 2.5 Mg/3 Ml Vial.neb, 3 ML INH Q4H Y for Shortness of Breath, EA 12/23/16 Heparin Sod (Porcine) (HEPARIN SODIUM*) 5 000/1 Ml Vial, 5000 UNITS SUBQ EVERY 12 HOURS, VIAL 12/23/16 Docusate Sodium* (DOCUSATE SODIUM*) 100 Mg Capsule, 100 MG ORAL TWICE A DAY Y for Constipation, CAP 12/23/16 Clonidine Hcl* (CATAPRES*) 0.1 Mg Tablet, 0.1 MG ORAL EVERY 4 HOURS Y for For High Blood Pressure, TAB 12/23/16 Med list reviewed/reconciled: Yes Allergies: Coded Allergies: ASPIRIN (Unverified Allergy, Unknown, 12/23/16) IBUPROFEN (Verified Allergy, Unknown, 12/18/16) PROCHLORPERAZINE (Verified Allergy, Unknown, 12/18/16) Patient History PMH Narrative End-stage renal disease, on hemodialysis, COPD, and diabetes. Social History: Denies: smoking, alcohol use, drug use, other Review of Systems All Other Systems: negative except mentioned in HPI Physical Exam Vital Signs Date Time Temp Pulse Resp B/P (MAP) Pulse Ox O2 Delivery O2 Flow Rate FiO2 12/23/16 07:57 70 14 126/72 12/23/16 11:30 95 Nasal Cannula 2.0 12/23/16 15:40 97.5 Sp02 EP Interpretation: reviewed Labs Laboratory Tests Test 12/25/16 06:20 White Blood Count 6.2 K/UL (4.8-10.8) Red Blood Count 3.45 M/UL (4.20-5.40) L Hemoglobin 10.8 G/DL (12.0-16.0) L Hematocrit 36.2 % (37.0-47.0) L Mean Corpuscular Volume 105 FL (80-99) H Mean Corpuscular Hemoglobin 31.2 PG (27.0-31.0) H Mean Corpuscular Hemoglobin Concent 29.7 G/DL (32.0-36.0) L Red Cell Distribution Width 18.9 % (11.6-14.8) H Platelet Count 71 K/UL (150-450) L Mean Platelet Volume 11.9 FL (6.5-10.1) H Neutrophils (%) (Auto) % (45.0-75.0) Lymphocytes (%) (Auto) % (20.0-45.0) Monocytes (%) (Auto) % (1.0-10.0) Eosinophils (%) (Auto) % (0.0-3.0) Basophils (%) (Auto) % (0.0-2.0) Differential Total Cells Counted 100 Neutrophils % (Manual) 52 % (45-75) Lymphocytes % (Manual) 40 % (20-45) Monocytes % (Manual) 4 % (1-10) Eosinophils % (Manual) 4 % (0-3) H Basophils % (Manual) 0 % (0-2) Band Neutrophils 0 % (0-8) Platelet Estimate Decreased L Platelet Morphology Normal Polychromasia 1+ Hypochromasia 1+ Anisocytosis 1+ Macrocytosis 1+ Sodium Level 127 mEQ/L (135-145) L Potassium Level 4.8 mEQ/L (3.4-4.9) Chloride Level 85 mEQ/L (98-107) L Carbon Dioxide Level 30 mEQ/L (20-30) Anion Gap 12 (5-15) Blood Urea Nitrogen 18 mg/dL (7-23) Creatinine 3.3 mg/dL (0.5-0.9) H Estimat Glomerular Filtration Rate 17.2 mL/min (>60) Glucose Level 133 mg/dL (74-106) H Uric Acid 5.8 mg/dL (3.0-7.5) Calcium Level 9.0 mg/dL (8.6-10.2) Phosphorus Level 3.6 mg/dL (2.5-4.8) Magnesium Level 2.1 mg/dL (1.7-2.5) Total Bilirubin 2.4 mg/dL (0.0-1.2) H Direct Bilirubin 1.6 mg/dL (0.1-0.3) H Gamma Glutamyl Transpeptidase 121 U/L (5-36) H Aspartate Amino Transf (AST/SGOT) 78 U/L (5-40) H Alanine Aminotransferase (ALT/SGPT) 96 U/L (3-33) H Alkaline Phosphatase 172 U/L (35-104) H Total Creatine Kinase 79 U/L (26-140) C-Reactive Protein, Quantitative 4.2 mg/dL (< 0.5) H Pro-B-Type Natriuretic Peptide 40314 pg/mL (0-125) H Total Protein 6.8 g/dL (6.6-8.7) Albumin 3.3 g/dL (3.5-5.2) L Globulin 3.5 g/dL Albumin/Globulin Ratio 0.9 (1.0-2.7) L Hepatitis A IgM Antibody Pending Hepatitis B Surface Antigen Pending Hepatitis B Core IgM Antibody Pending Hepatitis C Antibody Pending General Appearance: well appearing, no apparent distress Head: normocephalic EENT: normal ENT inspection Neck: supple Respiratory: normal breath sounds, no respiratory distress Cardiovascular: normal rate, no JVD Gastrointestinal: normal inspection, non tender, normal bowel sounds Rectal: deferred Musculoskeletal: back normal Neurologic: normal inspection, alert Psychiatric: normal inspection Skin: normal inspection, normal color, no rash, warm/dry Lymphatic: normal inspection, no adenopathy Current Medications Current Medications Medications (Trade) Dose Ordered Sig/Donald Route PRN Reason Start Time Stop Time Status Last Admin Dose Admin Acetaminophen (Tylenol) 650 mg Q4H PRN ORAL fever>100.5 12/23/16 15:00 01/22/17 14:59 Albuterol/ Ipratropium (DuoNeb 0.5-3(2.5)mg/3ml) 3 ml Q6H PRN HHN dyspnea 12/23/16 15:30 12/28/16 15:29 Atenolol (Tenormin) 25 mg DAILY ORAL 12/24/16 09:00 01/23/17 08:59 12/24/16 08:23 Atorvastatin Calcium (Lipitor) 10 mg BEDTIME ORAL 12/23/16 21:00 01/22/17 20:59 12/24/16 19:51 Azithromycin 500 mg/Dextrose 275 ml @ 275 mls/hr Q24HRS IV 12/25/16 01:00 12/31/16 01:59 12/25/16 01:40 Cyclobenzaprine HCl (Flexeril) 5 mg THREE TIMES A DAY ORAL 12/23/16 18:00 01/22/17 17:59 12/25/16 09:33 Dextrose (Dextrose 50%) STAT PRN IV Hypoglycemia 12/23/16 15:00 01/22/17 14:59 12/25/16 11:30 Gabapentin (Neurontin) 300 mg BID ORAL 12/23/16 18:00 01/22/17 17:59 12/25/16 09:30 Insulin Aspart (NovoLOG) BEFORE MEALS AND HS SUBQ 12/23/16 16:30 01/22/17 16:29 Morphine Sulfate (Morphine Sulfate) 1 mg Q4H PRN IVP For Pain 12/23/16 15:30 12/30/16 15:29 12/25/16 04:01 Ondansetron HCl (Zofran) 4 mg Q6H PRN IVP Nausea & Vomiting 12/23/16 15:00 01/22/17 14:59 Pantoprazole (Protonix) 40 mg DAILY ORAL 12/24/16 10:30 01/23/17 10:29 12/25/16 09:30 Polyethylene Glycol (Miralax) 17 gm HSPRN PRN ORAL Constipation 12/23/16 21:00 01/22/17 20:59 Zolpidem Tartrate (Ambien) 5 mg HSPRN PRN ORAL Insomnia 12/23/16 21:00 12/30/16 20:59 GI: Plan Problems: (1) Cholestasis (2) Anemia (3) Hypoalbuminemia (4) Elevated CEA (5) Liver failure Plan iron elevation elevated CEA 4.9 elevated LFTs >> fu abdominal U/S and hepatitis panel anemia work up OB stool r/o GI bleed monitor H&H, prn transfusions ppi DM mgmt PT evaluation fu labs Discussed with Dr. Foley. Thank you for referring this patient, we will follow. Shanell Oneill N.P. Dec 25, 2016 11:57
[2016-12-25 12:00] VITALS: BP 121/64
--- NOTE | 2016-12-25 13:24 | Diagnostic Imaging Report ---
Indication: Abnormal liver function tests and renal function tests Technique: Curtis-scale and duplex images of the upper abdomen were obtained Comparison: Findings: A small amount of ascites fluid is present Gallbladder images gallstones and sludge. The gallbladder wall is thickened, measuring up to 7 mm thick. Sonographic Brantley's sign is negative. Common bile duct measures 14 mm in diameter. No intrahepatic biliary ductal dilatation. Liver demonstrates normal echogenicity, no focal abnormality. It is enlarged. There is a 3 cm cyst within the right hepatic lobe the tip Portal vein and hepatic veins are patent. Pancreas is unremarkable. Spleen is unremarkable except for an accessory splenule. Left kidney measures 13 cm in length. Right kidney measures 9.7 cm length. Both kidneys demonstrate mildly increased echogenicity There is no hydronephrosis. Right kidney demonstrates a 15 mm cyst . Non-aneurysmal abdominal aorta . Impression: Trace ascites Gallstones. There is gallbladder wall thickening. This is probably due whatever process is causing the ascites, but possibility of acute cholecystitis should also be considered. Consider nuclear medicine hepatobiliary scan for further evaluation if there is high clinical suspicion Dilated common bile duct. Downstream obstruction not excludable. Consider MRCP for further evaluation if clinically indicated. Hepatomegaly Bilateral echogenic kidneys, consistent with medical renal disease Right renal and right lobe hepatic cysts incidentally noted Incidental finding of accessory spleen
--- NOTE | 2016-12-25 16:03 | Pulmonology Progress Note ---
Assessment/Plan Problems: (1) Encephalopathy acute (2) Hypoglycemia (3) Anemia (4) Coagulopathy (5) Liver failure (6) ESRD (end stage renal disease) on dialysis Assessment/Plan GI work up in process endo consult still pending hd by nephrology Subjective ROS Limited/Unobtainable: No Constitutional: Reports: no symptoms HEENT: Repors: no symptoms Respiratory: Reports: no symptoms Allergies: Coded Allergies: ASPIRIN (Unverified Allergy, Unknown, 12/23/16) IBUPROFEN (Verified Allergy, Unknown, 12/18/16) PROCHLORPERAZINE (Verified Allergy, Unknown, 12/18/16) Objective Last 24 Hour Vital Signs Date Time Temp Pulse Resp B/P (MAP) Pulse Ox O2 Delivery O2 Flow Rate FiO2 12/25/16 15:06 96.8 12/25/16 12:00 96.8 73 18 121/64 94 Room Air 12/25/16 09:00 71 116/64 12/25/16 08:00 97.9 71 17 116/64 95 Room Air 12/25/16 04:00 98.1 75 18 103/64 95 Room Air 12/25/16 00:00 97.3 78 20 92/57 99 Nasal Cannula 2.0 12/24/16 20:00 97.7 77 20 119/74 97 Room Air 12/24/16 16:15 Nasal Cannula 2.0 General Appearance: WD/WN HEENT: normocephalic, anicteric Respiratory/Chest: chest wall non-tender, lungs clear Breasts: no masses Cardiovascular: normal peripheral pulses, normal rate Abdomen: normal bowel sounds, soft, non tender Genitourinary: normal external genitalia Extremities: no cyanosis Skin: no rash Microbiology Date/Time Source Procedure Growth Status 12/23/16 14:18 Nasal Nares MRSA Culture - Final NO METHICILLIN RESISTANT STAPH AUREUS... Complete 12/24/16 03:23 Urine,Clean Catch Urine Culture - Preliminary Resulted 12/23/16 14:18 Rectum VRE Culture - Final Enterococcus Faecium - Vre Complete Laboratory Tests 12/25/16 06:20: White Blood Count 6.2, Red Blood Count 3.45L, Hemoglobin 10.8L, Hematocrit 36.2L , Mean Corpuscular Volume 105H, Mean Corpuscular Hemoglobin 31.2H, Mean Corpuscular Hemoglobin Concent 29.7L, Red Cell Distribution Width 18.9H, Platelet Count 71L, Mean Platelet Volume 11.9H, Neutrophils (%) (Auto) , Lymphocytes (%) (Auto) , Monocytes (%) (Auto) , Eosinophils (%) (Auto) , Basophils (%) (Auto) , Differential Total Cells Counted 100, Neutrophils % ( Manual) 52, Lymphocytes % (Manual) 40, Monocytes % (Manual) 4, Eosinophils % ( Manual) 4H, Basophils % (Manual) 0, Band Neutrophils 0, Platelet Estimate DecreasedL, Platelet Morphology Normal, Polychromasia 1+, Hypochromasia 1+, Anisocytosis 1+, Macrocytosis 1+, Sodium Level 127L, Potassium Level 4.8, Chloride Level 85L, Carbon Dioxide Level 30, Anion Gap 12, Blood Urea Nitrogen 18, Creatinine 3.3H, Estimat Glomerular Filtration Rate 17.2, Glucose Level 133H , Uric Acid 5.8, Calcium Level 9.0, Phosphorus Level 3.6, Magnesium Level 2.1, Total Bilirubin 2.4H, Direct Bilirubin 1.6H, Gamma Glutamyl Transpeptidase 121H , Aspartate Amino Transf (AST/SGOT) 78H, Alanine Aminotransferase (ALT/SGPT) 96H , Alkaline Phosphatase 172H, Total Creatine Kinase 79, C-Reactive Protein, Quantitative 4.2H, Pro-B-Type Natriuretic Peptide 03456X, Total Protein 6.8, Albumin 3.3L, Globulin 3.5, Albumin/Globulin Ratio 0.9L, Hepatitis A IgM Antibody [Pending], Hepatitis B Surface Antigen [Pending], Hepatitis B Core IgM Antibody [Pending], Hepatitis C Antibody [Pending] Current Medications Medications (Trade) Dose Ordered Sig/Donald Route PRN Reason Start Time Stop Time Status Last Admin Dose Admin Acetaminophen (Tylenol) 650 mg Q4H PRN ORAL fever>100.5 12/23/16 15:00 01/22/17 14:59 Albuterol/ Ipratropium (DuoNeb 0.5-3(2.5)mg/3ml) 3 ml Q6H PRN HHN dyspnea 12/23/16 15:30 12/28/16 15:29 Atenolol (Tenormin) 25 mg DAILY ORAL 12/24/16 09:00 01/23/17 08:59 12/24/16 08:23 Atorvastatin Calcium (Lipitor) 10 mg BEDTIME ORAL 12/23/16 21:00 01/22/17 20:59 12/24/16 19:51 Azithromycin 500 mg/Dextrose 275 ml @ 275 mls/hr Q24HRS IV 12/25/16 01:00 12/31/16 01:59 12/25/16 01:40 Cyclobenzaprine HCl (Flexeril) 5 mg THREE TIMES A DAY ORAL 12/23/16 18:00 01/22/17 17:59 12/25/16 14:07 Dextrose (Dextrose 50%) STAT PRN IV Hypoglycemia 12/23/16 15:00 01/22/17 14:59 12/25/16 11:30 Gabapentin (Neurontin) 300 mg BID ORAL 12/23/16 18:00 01/22/17 17:59 12/25/16 09:30 Insulin Aspart (NovoLOG) BEFORE MEALS AND HS SUBQ 12/23/16 16:30 01/22/17 16:29 Morphine Sulfate (Morphine Sulfate) 1 mg Q4H PRN IVP For Pain 12/23/16 15:30 12/30/16 15:29 12/25/16 04:01 Ondansetron HCl (Zofran) 4 mg Q6H PRN IVP Nausea & Vomiting 12/23/16 15:00 01/22/17 14:59 Pantoprazole (Protonix) 40 mg DAILY ORAL 12/24/16 10:30 01/23/17 10:29 12/25/16 09:30 Polyethylene Glycol (Miralax) 17 gm HSPRN PRN ORAL Constipation 12/23/16 21:00 01/22/17 20:59 Zolpidem Tartrate (Ambien) 5 mg HSPRN PRN ORAL Insomnia 12/23/16 21:00 12/30/16 20:59 SANCHEZ MURGUIA Dec 25, 2016 16:03
--- NOTE | 2016-12-25 16:12 | Diagnostic Imaging Report ---
Indication: Abdominal pain Technique: IV administration 5.4 mCi 99M technetium mebrofenin. Images obtained over the liver for one hour. Delayed images at 4 hours also obtained Comparison: Reference made to ultrasound from earlier the same day Findings: There is somewhat slow but steady hepatic tracer uptake. Intrahepatic ducts are visualized at 13 minutes. Activity is seen within the gallbladder 19 minutes. Extrahepatic ducts are seen at 16 minutes. At one hour, no definite excretion into the duodenum is demonstrated although the common bile duct and gallbladder appear largely filled. However, delayed imaging at 4 hours indicates excretion of the preponderance of the tracer into small bowel. Impression: Negative for evidence of cystic duct obstruction/acute cholecystitis. Recently described gallbladder wall thickening is presumably due to hemodynamic derangements Common bile duct is demonstrated to be patent. Excretion of tracer into the small bowel is somewhat delayed but tracer eventually gets through. Significance of this finding in view of the biliary ductal dilatation demonstrated on recent ultrasound is uncertain. Possibly baseline for this patient. Could indicate sphincter spasm if patient is taking narcotics. This has also been reported in [facility]
[2016-12-25] MEDS ORDERED: Phytonadione 10 MG in D5W 55 ML IVPB ONE (17:00)
--- NOTE | 2016-12-25 18:44 | General Progress Note ---
Assessment/Plan Problem List: (1) ESRD (end stage renal disease) on dialysis ICD Codes: N18.6 - End stage renal disease; Z99.2 - Dependence on renal dialysis SNOMED: 616576547 (2) Hypoglycemia ICD Codes: E16.2 - Hypoglycemia, unspecified SNOMED: 474225594 (3) Liver failure ICD Codes: K72.90 - Hepatic failure, unspecified without coma SNOMED: 88449424 Qualifiers: Qualified Codes: K72.00 - Acute and subacute hepatic failure without coma (4) Elevated CEA ICD Codes: R97.0 - Elevated carcinoembryonic antigen [CEA] SNOMED: 97797222, 240828633 Assessment/Plan severe hypoglycemia w/o hx of DM - not on diabetic medications - adrenal insufficiency will be ruled out by sending fasting ACTH and serum Cortisol - blood glucose monitoring in order - DC insulin coverage - hypoglycemia protocol TSH is mildly elevated which could be due to state of illness - repeat TSH - assess free T4 and ATPO Subjective Allergies: Coded Allergies: ASPIRIN (Unverified Allergy, Unknown, 12/23/16) IBUPROFEN (Verified Allergy, Unknown, 12/18/16) PROCHLORPERAZINE (Verified Allergy, Unknown, 12/18/16) All Systems: reviewed and negative except above Subjective patient admitted with severe hypoglycemia with neuroglycopenic symptoms no hx of DM and not on any diabetic medications this is a recurrent issue hx of ESRD on HD noted to have elevated LFTs - GI service consulted Objective Last 24 Hour Vital Signs Date Time Temp Pulse Resp B/P (MAP) Pulse Ox O2 Delivery O2 Flow Rate FiO2 12/25/16 16:00 97.5 72 18 Room Air 12/25/16 15:06 96.8 12/25/16 12:00 96.8 73 18 121/64 94 Room Air 12/25/16 09:00 71 116/64 12/25/16 08:00 97.9 71 17 116/64 95 Room Air 12/25/16 04:00 98.1 75 18 103/64 95 Room Air 12/25/16 00:00 97.3 78 20 92/57 99 Nasal Cannula 2.0 12/24/16 20:00 97.7 77 20 119/74 97 Room Air Laboratory Tests 12/25/16 06:20: White Blood Count 6.2, Red Blood Count 3.45L, Hemoglobin 10.8L, Hematocrit 36.2L , Mean Corpuscular Volume 105H, Mean Corpuscular Hemoglobin 31.2H, Mean Corpuscular Hemoglobin Concent 29.7L, Red Cell Distribution Width 18.9H, Platelet Count 71L, Mean Platelet Volume 11.9H, Neutrophils (%) (Auto) , Lymphocytes (%) (Auto) , Monocytes (%) (Auto) , Eosinophils (%) (Auto) , Basophils (%) (Auto) , Differential Total Cells Counted 100, Neutrophils % ( Manual) 52, Lymphocytes % (Manual) 40, Monocytes % (Manual) 4, Eosinophils % ( Manual) 4H, Basophils % (Manual) 0, Band Neutrophils 0, Platelet Estimate DecreasedL, Platelet Morphology Normal, Polychromasia 1+, Hypochromasia 1+, Anisocytosis 1+, Macrocytosis 1+, Sodium Level 127L, Potassium Level 4.8, Chloride Level 85L, Carbon Dioxide Level 30, Anion Gap 12, Blood Urea Nitrogen 18, Creatinine 3.3H, Estimat Glomerular Filtration Rate 17.2, Glucose Level 133H , Uric Acid 5.8, Calcium Level 9.0, Phosphorus Level 3.6, Magnesium Level 2.1, Total Bilirubin 2.4H, Direct Bilirubin 1.6H, Gamma Glutamyl Transpeptidase 121H , Aspartate Amino Transf (AST/SGOT) 78H, Alanine Aminotransferase (ALT/SGPT) 96H , Alkaline Phosphatase 172H, Total Creatine Kinase 79, C-Reactive Protein, Quantitative 4.2H, Pro-B-Type Natriuretic Peptide 68508R, Total Protein 6.8, Albumin 3.3L, Globulin 3.5, Albumin/Globulin Ratio 0.9L, Alpha Fetoprotein [ Pending], Hepatitis A IgM Antibody [Pending], Hepatitis B Surface Antigen [ Pending], Hepatitis B Core IgM Antibody [Pending], Hepatitis C Antibody [Pending ] Height (Feet): 5 Height (Inches): 4.00 Weight (Pounds): 200 General Appearance: no apparent distress EENT: PERRL/EOMI Neck: normal alignment Cardiovascular: normal peripheral pulses Respiratory/Chest: lungs clear Abdomen: normal bowel sounds Edema: no edema noted Arm (L), no edema noted Arm (R), no edema noted Leg (L), no edema noted Leg (R), no edema noted Pedal (L), no edema noted Pedal (R), no edema noted Generalized Objective Item Value Date Time Bedside Blood Glucose 101 mg/dl 12/25/16 1630 Bedside Blood Glucose 73 mg/dl 12/25/16 1411 Bedside Blood Glucose 109 mg/dl 12/25/16 0625 Current Medications Medications (Trade) Dose Ordered Sig/Donald Route PRN Reason Start Time Stop Time Status Last Admin Dose Admin Acetaminophen (Tylenol) 650 mg Q4H PRN ORAL fever>100.5 12/23/16 15:00 01/22/17 14:59 Albuterol/ Ipratropium (DuoNeb 0.5-3(2.5)mg/3ml) 3 ml Q6H PRN HHN dyspnea 12/23/16 15:30 12/28/16 15:29 Atenolol (Tenormin) 25 mg DAILY ORAL 12/24/16 09:00 01/23/17 08:59 12/24/16 08:23 Atorvastatin Calcium (Lipitor) 10 mg BEDTIME ORAL 12/23/16 21:00 01/22/17 20:59 12/24/16 19:51 Azithromycin 500 mg/Dextrose 275 ml @ 275 mls/hr Q24HRS IV 12/25/16 01:00 12/31/16 01:59 12/25/16 01:40 Cyclobenzaprine HCl (Flexeril) 5 mg THREE TIMES A DAY ORAL 12/23/16 18:00 01/22/17 17:59 12/25/16 18:12 Dextrose (Dextrose 50%) STAT PRN IV Hypoglycemia 12/23/16 15:00 01/22/17 14:59 12/25/16 11:30 Gabapentin (Neurontin) 300 mg BID ORAL 12/23/16 18:00 01/22/17 17:59 12/25/16 18:12 Insulin Aspart (NovoLOG) BEFORE MEALS AND HS SUBQ 12/23/16 16:30 01/22/17 16:29 Morphine Sulfate (Morphine Sulfate) 1 mg Q4H PRN IVP For Pain 12/23/16 15:30 12/30/16 15:29 12/25/16 04:01 Ondansetron HCl (Zofran) 4 mg Q6H PRN IVP Nausea & Vomiting 12/23/16 15:00 01/22/17 14:59 Pantoprazole (Protonix) 40 mg DAILY ORAL 12/24/16 10:30 01/23/17 10:29 12/25/16 09:30 Polyethylene Glycol (Miralax) 17 gm HSPRN PRN ORAL Constipation 12/23/16 21:00 01/22/17 20:59 Zolpidem Tartrate (Ambien) 5 mg HSPRN PRN ORAL Insomnia 12/23/16 21:00 12/30/16 20:59 MANDO ISAAC Dec 25, 2016 18:44
[2016-12-25 20:00] VITALS: BP 106/71
--- NOTE | 2016-12-25 20:20 | Infectious Diseases Prog Note ---
Assessment/Plan Assessment/Plan ASSESSMENT: 1. The patient is a 61-year-old female with chronic obstructive pulmonary disease exacerbation/bronchitis. 2. Transaminitis, rule out chronic hepatitis. 3. no evid of cholecystitis, ultrasound shows gallbladder wall thickening and gallstones. but HIDA : Negative for evidence of cystic duct obstruction/acute cholecystitis. 4. Rule out bacteremia in view of being on hemodialysis. PLAN: 1. We will start the patient on IV Zithromax d# 2 / 5 . o to DC w cont of AB Rx 2. Monitor CBC. 3. Monitor BMP. 4. HIDA scan. 5. Hepatitis panel. 6. Monitor blood culture. 7. Based on the patient's clinical course and labs, we will do further recommendation. Subjective Constitutional: Denies: no symptoms, fever, chills, fatigue, anorexia, drenching sweats, other Allergies: Coded Allergies: ASPIRIN (Unverified Allergy, Unknown, 12/23/16) IBUPROFEN (Verified Allergy, Unknown, 12/18/16) PROCHLORPERAZINE (Verified Allergy, Unknown, 12/18/16) Objective Vital Signs Last 24 Hour Vital Signs Date Time Temp Pulse Resp B/P (MAP) Pulse Ox O2 Delivery O2 Flow Rate FiO2 12/25/16 20:00 96.8 78 18 106/71 91 Room Air 12/25/16 16:00 97.5 72 18 Room Air 12/25/16 15:06 96.8 12/25/16 12:00 96.8 73 18 121/64 94 Room Air 12/25/16 09:00 71 116/64 12/25/16 08:00 97.9 71 17 116/64 95 Room Air 12/25/16 04:00 98.1 75 18 103/64 95 Room Air 12/25/16 00:00 97.3 78 20 92/57 99 Nasal Cannula 2.0 Height (Feet): 5 Height (Inches): 4.00 Weight (Pounds): 200 HEENT: mucous membranes moist Respiratory/Chest: no accessory muscle use Cardiovascular: regularly irregular Abdomen: non distended Microbiology Date/Time Source Procedure Growth Status 12/23/16 14:18 Nasal Nares MRSA Culture - Final NO METHICILLIN RESISTANT STAPH AUREUS... Complete 12/24/16 03:23 Urine,Clean Catch Urine Culture - Preliminary Resulted 12/23/16 14:18 Rectum VRE Culture - Final Enterococcus Faecium - Vre Complete Laboratory Tests Test 12/25/16 06:20 White Blood Count 6.2 K/UL (4.8-10.8) Red Blood Count 3.45 M/UL (4.20-5.40) L Hemoglobin 10.8 G/DL (12.0-16.0) L Hematocrit 36.2 % (37.0-47.0) L Mean Corpuscular Volume 105 FL (80-99) H Mean Corpuscular Hemoglobin 31.2 PG (27.0-31.0) H Mean Corpuscular Hemoglobin Concent 29.7 G/DL (32.0-36.0) L Red Cell Distribution Width 18.9 % (11.6-14.8) H Platelet Count 71 K/UL (150-450) L Mean Platelet Volume 11.9 FL (6.5-10.1) H Neutrophils (%) (Auto) % (45.0-75.0) Lymphocytes (%) (Auto) % (20.0-45.0) Monocytes (%) (Auto) % (1.0-10.0) Eosinophils (%) (Auto) % (0.0-3.0) Basophils (%) (Auto) % (0.0-2.0) Differential Total Cells Counted 100 Neutrophils % (Manual) 52 % (45-75) Lymphocytes % (Manual) 40 % (20-45) Monocytes % (Manual) 4 % (1-10) Eosinophils % (Manual) 4 % (0-3) H Basophils % (Manual) 0 % (0-2) Band Neutrophils 0 % (0-8) Platelet Estimate Decreased L Platelet Morphology Normal Polychromasia 1+ Hypochromasia 1+ Anisocytosis 1+ Macrocytosis 1+ Sodium Level 127 mEQ/L (135-145) L Potassium Level 4.8 mEQ/L (3.4-4.9) Chloride Level 85 mEQ/L (98-107) L Carbon Dioxide Level 30 mEQ/L (20-30) Anion Gap 12 (5-15) Blood Urea Nitrogen 18 mg/dL (7-23) Creatinine 3.3 mg/dL (0.5-0.9) H Estimat Glomerular Filtration Rate 17.2 mL/min (>60) Glucose Level 133 mg/dL (74-106) H Uric Acid 5.8 mg/dL (3.0-7.5) Calcium Level 9.0 mg/dL (8.6-10.2) Phosphorus Level 3.6 mg/dL (2.5-4.8) Magnesium Level 2.1 mg/dL (1.7-2.5) Total Bilirubin 2.4 mg/dL (0.0-1.2) H Direct Bilirubin 1.6 mg/dL (0.1-0.3) H Gamma Glutamyl Transpeptidase 121 U/L (5-36) H Aspartate Amino Transf (AST/SGOT) 78 U/L (5-40) H Alanine Aminotransferase (ALT/SGPT) 96 U/L (3-33) H Alkaline Phosphatase 172 U/L (35-104) H Total Creatine Kinase 79 U/L (26-140) C-Reactive Protein, Quantitative 4.2 mg/dL (< 0.5) H Pro-B-Type Natriuretic Peptide 27260 pg/mL (0-125) H Total Protein 6.8 g/dL (6.6-8.7) Albumin 3.3 g/dL (3.5-5.2) L Globulin 3.5 g/dL Albumin/Globulin Ratio 0.9 (1.0-2.7) L Alpha Fetoprotein Pending Hepatitis A IgM Antibody Pending Hepatitis B Surface Antigen Pending Hepatitis B Core IgM Antibody Pending Hepatitis C Antibody Pending Current Medications Medications (Trade) Dose Ordered Sig/Donald Route PRN Reason Start Time Stop Time Status Last Admin Dose Admin Acetaminophen (Tylenol) 650 mg Q4H PRN ORAL fever>100.5 12/23/16 15:00 01/22/17 14:59 Albuterol/ Ipratropium (DuoNeb 0.5-3(2.5)mg/3ml) 3 ml Q6H PRN HHN dyspnea 12/23/16 15:30 12/28/16 15:29 Atenolol (Tenormin) 25 mg DAILY ORAL 12/24/16 09:00 01/23/17 08:59 12/24/16 08:23 Atorvastatin Calcium (Lipitor) 10 mg BEDTIME ORAL 12/23/16 21:00 01/22/17 20:59 12/24/16 19:51 Azithromycin 500 mg/Dextrose 275 ml @ 275 mls/hr Q24HRS IV 12/25/16 01:00 12/31/16 01:59 12/25/16 01:40 Cyclobenzaprine HCl (Flexeril) 5 mg THREE TIMES A DAY ORAL 12/23/16 18:00 01/22/17 17:59 12/25/16 18:12 Dextrose (Dextrose 50%) STAT PRN IV Hypoglycemia 12/25/16 18:45 01/24/17 18:44 Gabapentin (Neurontin) 300 mg BID ORAL 12/23/16 18:00 01/22/17 17:59 12/25/16 18:12 Morphine Sulfate (Morphine Sulfate) 1 mg Q4H PRN IVP For Pain 12/23/16 15:30 12/30/16 15:29 12/25/16 04:01 Ondansetron HCl (Zofran) 4 mg Q6H PRN IVP Nausea & Vomiting 12/23/16 15:00 01/22/17 14:59 Pantoprazole (Protonix) 40 mg DAILY ORAL 12/24/16 10:30 01/23/17 10:29 12/25/16 09:30 Polyethylene Glycol (Miralax) 17 gm HSPRN PRN ORAL Constipation 12/23/16 21:00 01/22/17 20:59 Zolpidem Tartrate (Ambien) 5 mg HSPRN PRN ORAL Insomnia 12/23/16 21:00 12/30/16 20:59 LORENZA HUSTON M.D. Dec 25, 2016 20:20
[2016-12-26 00:19] VITALS: BP 124/85
[2016-12-26] MEDS: Azithromycin 500 MG in D5W 275 ML IV SCH (00:42)
[2016-12-26] MEDS: Morphine Sulfate 2mg/ml Inj IVP PRN (00:43)
[2016-12-26 04:00] VITALS: BP 119/68
[2016-12-26 08:00] VITALS: BP 142/97
[2016-12-26 08:20] LABS: MEAN CORPUSCULAR HEMOGLOBIN 30.8 PG (27.0-31.0); MEAN CORPUSCULAR HGB CONC 29.9 G/DL (32.0-36.0); MEAN CORPUSCULAR VOLUME 103 FL (80-99); MEAN PLATELET VOLUME 8.6 FL (6.5-10.1); PLATELET COUNT 69 K/UL (150-450); RED BLOOD COUNT 3.54 M/UL (4.20-5.40); RED CELL DISTRIBUTION WIDTH 19.1 % (11.6-14.8); WHITE BLOOD COUNT 6.4 K/UL (4.8-10.8)
[2016-12-26 08:31] LABS: ALBUMIN/GLOBULIN RATIO 0.9 (1.0-2.7); CALCIUM 9.3 mg/dL (8.6-10.2); CREATININE 3.1 mg/dL (0.5-0.9); CRP QUANT 4.1 mg/dL (< 0.5); GLOMERULAR FILTRATION RATE 18.4 mL/min (>60); PHOSPHORUS 4.1 mg/dL (2.5-4.8); POTASSIUM 5.2 mEQ/L (3.4-4.9); TOTAL PROTEIN 6.5 g/dL (6.6-8.7); URIC ACID 6.8 mg/dL (3.0-7.5)
[2016-12-26] MEDS: Atenolol 25mg tab ORAL SCH (08:44)
[2016-12-26] MEDS: Cyclobenzaprine 10mg Tab ORAL SCH ×3 (08:45→18:38)
[2016-12-26 09:20] LABS: BILIRUBIN,DIRECT 1.6 mg/dL (0.1-0.3)
[2016-12-26 09:26] LABS: ANISOCYTOSIS 1+; BAND NEUTROPHILS % (MANUAL) 0 % (0-8); BASOPHILS % (MANUAL) 1 % (0-2); EOSINOPHILS % (MANUAL) 1 % (0-3); HYPOCHROMASIA 1+; LYMPHOCYTES % (MANUAL) 54 % (20-45); NEUTROPHILS % (MANUAL) 33 % (45-75); PLATELET ESTIMATE DECREASED; PLATELET MORPHOLOGY NORMAL; SCHISTOCYTES 1+; STOMATOCYTES 1+; TARGET CELLS 1+; TOTAL CELLS COUNTED 100
--- NOTE | 2016-12-26 09:49 | General Progress Note ---
Assessment/Plan Status: stable, unchanged Status Narrative Na 124 Assessment/Plan ESRD (end stage renal disease) on dialysis, today Na 127 and K now normal Transient hypotension on admit leading to encephalopathy, improving Liver failure, elevated LFTs Anemia Plan: HD and UF trini on high Na bath Keep BP and BS in check per orders diet to renal gastric support Subjective ROS Limited/Unobtainable: No Constitutional: Reports: malaise Allergies: Coded Allergies: ASPIRIN (Unverified Allergy, Unknown, 12/23/16) IBUPROFEN (Verified Allergy, Unknown, 12/18/16) PROCHLORPERAZINE (Verified Allergy, Unknown, 12/18/16) Objective Last 24 Hour Vital Signs Date Time Temp Pulse Resp B/P (MAP) Pulse Ox O2 Delivery O2 Flow Rate FiO2 12/26/16 08:44 72 142/97 12/26/16 08:00 98.2 72 19 142/97 98 Nasal Cannula 2.0 12/26/16 04:00 97.3 89 19 119/68 97 Room Air 12/26/16 00:19 98.2 82 18 124/85 98 Room Air 12/25/16 20:00 96.8 78 18 106/71 91 Room Air 12/25/16 16:00 97.5 72 18 Room Air 12/25/16 15:06 96.8 12/25/16 12:00 96.8 73 18 121/64 94 Room Air Intake and Output 12/26/16 12/27/16 19:00 07:00 Intake Total 120 ml Balance 120 ml Intake Oral 120 ml Laboratory Tests 12/26/16 08:10: White Blood Count 6.4, Red Blood Count 3.54L, Hemoglobin 10.9L, Hematocrit 36.4L , Mean Corpuscular Volume 103H, Mean Corpuscular Hemoglobin 30.8, Mean Corpuscular Hemoglobin Concent 29.9L, Red Cell Distribution Width 19.1H, Platelet Count 69L, Mean Platelet Volume 8.6, Neutrophils (%) (Auto) , Lymphocytes (%) (Auto) , Monocytes (%) (Auto) , Eosinophils (%) (Auto) , Basophils (%) (Auto) , Differential Total Cells Counted 100, Neutrophils % ( Manual) 33L, Lymphocytes % (Manual) 54H, Monocytes % (Manual) 11H, Eosinophils % (Manual) 1, Basophils % (Manual) 1, Band Neutrophils 0, Platelet Estimate DecreasedL, Platelet Morphology Normal, Hypochromasia 1+, Anisocytosis 1+, Target Cells 1+, Stomatocytes 1+, Schistocytes 1+, Sodium Level 124L, Potassium Level 5.2H, Chloride Level 84L, Carbon Dioxide Level 29, Anion Gap 11, Blood Urea Nitrogen 22, Creatinine 3.1H, Estimat Glomerular Filtration Rate 18.4, Glucose Level 94, Uric Acid 6.8, Calcium Level 9.3, Phosphorus Level 4.1, Magnesium Level 2.0, Ferritin 440H, Total Bilirubin 2.3H, Direct Bilirubin 1.6H , Aspartate Amino Transf (AST/SGOT) 58H, Alanine Aminotransferase (ALT/SGPT) 75H , Alkaline Phosphatase 157H, C-Reactive Protein, Quantitative 4.1H, Pro-B-Type Natriuretic Peptide 68042C, Total Protein 6.5L, Albumin 3.2L, Globulin 3.3, Albumin/Globulin Ratio 0.9L Height (Feet): 5 Height (Inches): 4.00 Weight (Pounds): 200 General Appearance: lethargic Objective other PE not changed LIANA STEVENS Dec 26, 2016 09:49
--- NOTE | 2016-12-26 11:34 | GI Progress Note ---
Assessment/Plan Problems: (1) Elevated CEA ICD Codes: R97.0 - Elevated carcinoembryonic antigen [CEA] SNOMED: 17037219, 305001998 (2) Cholestasis ICD Codes: K83.1 - Obstruction of bile duct SNOMED: 99445165 (3) Hypoalbuminemia ICD Codes: E88.09 - Other disorders of plasma-protein metabolism, not elsewhere classified SNOMED: 987609802 (4) Anemia ICD Codes: D64.9 - Anemia, unspecified SNOMED: 845700782 (5) Liver failure ICD Codes: K72.90 - Hepatic failure, unspecified without coma SNOMED: 51516398 Qualifiers: Qualified Codes: K72.00 - Acute and subacute hepatic failure without coma Status: unchanged Status Narrative Discussed with Dr. Foley. Assessment/Plan HIDA scan reviewed >> ordered MRCP - Negative for evidence of cystic duct obstruction/acute cholecystitis. - Recently described gallbladder wall thickening is presumably due to hemodynamic derangements - ?Caroli disease iron elevation elevated CEA 4.9 fu MRCP fu hepatitis panel OB stool r/o GI bleed monitor H&H, prn transfusions ppi DM mgmt PT evaluation fu labs Subjective Subjective abdominal pain Objective Last 24 Hour Vital Signs Date Time Temp Pulse Resp B/P (MAP) Pulse Ox O2 Delivery O2 Flow Rate FiO2 12/26/16 08:44 72 142/97 12/26/16 08:00 98.2 72 19 142/97 98 Nasal Cannula 2.0 12/26/16 04:00 97.3 89 19 119/68 97 Room Air 12/26/16 00:19 98.2 82 18 124/85 98 Room Air 12/25/16 20:00 96.8 78 18 106/71 91 Room Air 12/25/16 16:00 97.5 72 18 Room Air 12/25/16 15:06 96.8 12/25/16 12:00 96.8 73 18 121/64 94 Room Air Intake and Output 12/26/16 12/27/16 19:00 07:00 Intake Total 120 ml Balance 120 ml Intake Oral 120 ml Laboratory Tests Test 12/26/16 08:10 White Blood Count 6.4 K/UL (4.8-10.8) Red Blood Count 3.54 M/UL (4.20-5.40) L Hemoglobin 10.9 G/DL (12.0-16.0) L Hematocrit 36.4 % (37.0-47.0) L Mean Corpuscular Volume 103 FL (80-99) H Mean Corpuscular Hemoglobin 30.8 PG (27.0-31.0) Mean Corpuscular Hemoglobin Concent 29.9 G/DL (32.0-36.0) L Red Cell Distribution Width 19.1 % (11.6-14.8) H Platelet Count 69 K/UL (150-450) L Mean Platelet Volume 8.6 FL (6.5-10.1) Neutrophils (%) (Auto) % (45.0-75.0) Lymphocytes (%) (Auto) % (20.0-45.0) Monocytes (%) (Auto) % (1.0-10.0) Eosinophils (%) (Auto) % (0.0-3.0) Basophils (%) (Auto) % (0.0-2.0) Differential Total Cells Counted 100 Neutrophils % (Manual) 33 % (45-75) L Lymphocytes % (Manual) 54 % (20-45) H Monocytes % (Manual) 11 % (1-10) H Eosinophils % (Manual) 1 % (0-3) Basophils % (Manual) 1 % (0-2) Band Neutrophils 0 % (0-8) Platelet Estimate Decreased L Platelet Morphology Normal Hypochromasia 1+ Anisocytosis 1+ Target Cells 1+ Stomatocytes 1+ Schistocytes 1+ Sodium Level 124 mEQ/L (135-145) L Potassium Level 5.2 mEQ/L (3.4-4.9) H Chloride Level 84 mEQ/L (98-107) L Carbon Dioxide Level 29 mEQ/L (20-30) Anion Gap 11 (5-15) Blood Urea Nitrogen 22 mg/dL (7-23) Creatinine 3.1 mg/dL (0.5-0.9) H Estimat Glomerular Filtration Rate 18.4 mL/min (>60) Glucose Level 94 mg/dL (74-106) Uric Acid 6.8 mg/dL (3.0-7.5) Calcium Level 9.3 mg/dL (8.6-10.2) Phosphorus Level 4.1 mg/dL (2.5-4.8) Magnesium Level 2.0 mg/dL (1.7-2.5) Ferritin 440 ng/mL (13-150) H Total Bilirubin 2.3 mg/dL (0.0-1.2) H Direct Bilirubin 1.6 mg/dL (0.1-0.3) H Aspartate Amino Transf (AST/SGOT) 58 U/L (5-40) H Alanine Aminotransferase (ALT/SGPT) 75 U/L (3-33) H Alkaline Phosphatase 157 U/L (35-104) H C-Reactive Protein, Quantitative 4.1 mg/dL (< 0.5) H Pro-B-Type Natriuretic Peptide 96587 pg/mL (0-125) H Total Protein 6.5 g/dL (6.6-8.7) L Albumin 3.2 g/dL (3.5-5.2) L Globulin 3.3 g/dL Albumin/Globulin Ratio 0.9 (1.0-2.7) L Height (Feet): 5 Height (Inches): 4.00 Weight (Pounds): 200 General Appearance: no apparent distress, alert, obese Cardiovascular: normal rate Respiratory/Chest: normal breath sounds, no respiratory distress Abdominal Exam: normal bowel sounds, non tender, soft Shanell Oneill N.P. Dec 26, 2016 11:34
[2016-12-26 12:00] VITALS: BP 147/95
--- NOTE | 2016-12-26 15:25 | Pulmonology Progress Note ---
Assessment/Plan Problems: (1) Encephalopathy acute (2) Hypoglycemia (3) Anemia (4) Coagulopathy (5) Liver failure (6) ESRD (end stage renal disease) on dialysis Assessment/Plan f/u Endo recommendations rule out adrenal insufficiency GI work up in process endo consult still pending hd by nephrology Subjective ROS Limited/Unobtainable: No Constitutional: Reports: no symptoms HEENT: Repors: no symptoms Respiratory: Reports: no symptoms Cardiovascular: Reports: no symptoms Allergies: Coded Allergies: ASPIRIN (Unverified Allergy, Unknown, 12/23/16) IBUPROFEN (Verified Allergy, Unknown, 12/18/16) PROCHLORPERAZINE (Verified Allergy, Unknown, 12/18/16) Objective Last 24 Hour Vital Signs Date Time Temp Pulse Resp B/P (MAP) Pulse Ox O2 Delivery O2 Flow Rate FiO2 12/26/16 15:03 Nasal Cannula 2.0 12/26/16 12:00 98.2 85 19 147/95 96 Nasal Cannula 2.0 12/26/16 11:25 Nasal Cannula 2.0 12/26/16 08:44 72 142/97 12/26/16 08:00 98.2 72 19 142/97 98 Nasal Cannula 2.0 12/26/16 04:00 97.3 89 19 119/68 97 Room Air 12/26/16 00:19 98.2 82 18 124/85 98 Room Air 12/25/16 20:00 96.8 78 18 106/71 91 Room Air 12/25/16 16:00 97.5 72 18 Room Air Intake and Output 12/26/16 12/27/16 19:00 07:00 Intake Total 120 ml Output Total 3300 ml Balance -3180 ml Intake Oral 120 ml Hemodialysis UF 3300 ml General Appearance: WD/WN HEENT: normocephalic, atraumatic, anicteric Respiratory/Chest: chest wall non-tender, lungs clear Breasts: no masses Cardiovascular: normal peripheral pulses Abdomen: normal bowel sounds, no organomegaly Genitourinary: normal external genitalia Extremities: no cyanosis Skin: no rash Microbiology Date/Time Source Procedure Growth Status 12/25/16 00:50 Blood Blood Culture - Preliminary NO GROWTH AFTER 24 HOURS Resulted 12/25/16 00:45 Blood Blood Culture - Preliminary NO GROWTH AFTER 24 HOURS Resulted 12/24/16 03:23 Urine,Clean Catch Urine Culture - Preliminary Mixed Gram Positive Organism Resulted Laboratory Tests 12/26/16 08:10: White Blood Count 6.4, Red Blood Count 3.54L, Hemoglobin 10.9L, Hematocrit 36.4L , Mean Corpuscular Volume 103H, Mean Corpuscular Hemoglobin 30.8, Mean Corpuscular Hemoglobin Concent 29.9L, Red Cell Distribution Width 19.1H, Platelet Count 69L, Mean Platelet Volume 8.6, Neutrophils (%) (Auto) , Lymphocytes (%) (Auto) , Monocytes (%) (Auto) , Eosinophils (%) (Auto) , Basophils (%) (Auto) , Differential Total Cells Counted 100, Neutrophils % ( Manual) 33L, Lymphocytes % (Manual) 54H, Monocytes % (Manual) 11H, Eosinophils % (Manual) 1, Basophils % (Manual) 1, Band Neutrophils 0, Platelet Estimate DecreasedL, Platelet Morphology Normal, Hypochromasia 1+, Anisocytosis 1+, Target Cells 1+, Stomatocytes 1+, Schistocytes 1+, Sodium Level 124L, Potassium Level 5.2H, Chloride Level 84L, Carbon Dioxide Level 29, Anion Gap 11, Blood Urea Nitrogen 22, Creatinine 3.1H, Estimat Glomerular Filtration Rate 18.4, Glucose Level 94, Uric Acid 6.8, Calcium Level 9.3, Phosphorus Level 4.1, Magnesium Level 2.0, Ferritin 440H, Total Bilirubin 2.3H, Direct Bilirubin 1.6H , Aspartate Amino Transf (AST/SGOT) 58H, Alanine Aminotransferase (ALT/SGPT) 75H , Alkaline Phosphatase 157H, C-Reactive Protein, Quantitative 4.1H, Pro-B-Type Natriuretic Peptide 88420P, Total Protein 6.5L, Albumin 3.2L, Globulin 3.3, Albumin/Globulin Ratio 0.9L Current Medications Medications (Trade) Dose Ordered Sig/Donald Route PRN Reason Start Time Stop Time Status Last Admin Dose Admin Acetaminophen (Tylenol) 650 mg Q4H PRN ORAL fever>100.5 12/23/16 15:00 01/22/17 14:59 Albuterol/ Ipratropium (DuoNeb 0.5-3(2.5)mg/3ml) 3 ml Q6H PRN HHN dyspnea 12/23/16 15:30 12/28/16 15:29 Atenolol (Tenormin) 25 mg DAILY ORAL 12/24/16 09:00 01/23/17 08:59 12/26/16 08:44 Atorvastatin Calcium (Lipitor) 10 mg BEDTIME ORAL 12/23/16 21:00 01/22/17 20:59 12/25/16 21:21 Azithromycin 500 mg/Dextrose 275 ml @ 275 mls/hr Q24HRS IV 12/25/16 01:00 12/31/16 01:59 12/26/16 00:42 Cyclobenzaprine HCl (Flexeril) 5 mg THREE TIMES A DAY ORAL 12/23/16 18:00 01/22/17 17:59 12/26/16 13:00 Dextrose (Dextrose 50%) STAT PRN IV Hypoglycemia 12/25/16 18:45 01/24/17 18:44 Gabapentin (Neurontin) 300 mg BID ORAL 12/23/16 18:00 01/22/17 17:59 12/26/16 08:45 Morphine Sulfate (Morphine Sulfate) 1 mg Q4H PRN IVP For Pain 12/23/16 15:30 12/30/16 15:29 12/25/16 04:01 Ondansetron HCl (Zofran) 4 mg Q6H PRN IVP Nausea & Vomiting 12/23/16 15:00 01/22/17 14:59 Pantoprazole (Protonix) 40 mg DAILY ORAL 12/24/16 10:30 01/23/17 10:29 12/26/16 08:45 Polyethylene Glycol (Miralax) 17 gm HSPRN PRN ORAL Constipation 12/23/16 21:00 01/22/17 20:59 Zolpidem Tartrate (Ambien) 5 mg HSPRN PRN ORAL Insomnia 12/23/16 21:00 12/30/16 20:59 SANCHEZ MURGUIA Dec 26, 2016 15:25
--- NOTE | 2016-12-26 15:45 | Cardiology Report ---
APPROVED REPORT EKG Measurement Heart [id number] Normal sinus rhythm Right axis deviation Cannot rule out Anterior infarct, age undetermined Abnormal ECG
[2016-12-26 16:00] VITALS: BP 153/80
--- NOTE | 2016-12-26 16:15 | General Progress Note ---
Assessment/Plan Problem List: (1) ESRD (end stage renal disease) on dialysis ICD Codes: N18.6 - End stage renal disease; Z99.2 - Dependence on renal dialysis SNOMED: 167000749 (2) Hypoglycemia ICD Codes: E16.2 - Hypoglycemia, unspecified SNOMED: 013965302 (3) Liver failure ICD Codes: K72.90 - Hepatic failure, unspecified without coma SNOMED: 89541676 Qualifiers: Qualified Codes: K72.00 - Acute and subacute hepatic failure without coma (4) Elevated CEA ICD Codes: R97.0 - Elevated carcinoembryonic antigen [CEA] SNOMED: 81708842, 587372078 Assessment/Plan severe hypoglycemia w/o hx of DM - not on diabetic medications - adrenal insufficiency will be ruled out by sending fasting ACTH and serum Cortisol - sent as is pending - blood glucose monitoring in order - hypoglycemia protocol TSH is mildly elevated which could be due to state of illness - repeat TSH pending - free T4 and ATPO pending Subjective Allergies: Coded Allergies: ASPIRIN (Unverified Allergy, Unknown, 12/23/16) IBUPROFEN (Verified Allergy, Unknown, 12/18/16) PROCHLORPERAZINE (Verified Allergy, Unknown, 12/18/16) All Systems: reviewed and negative except above Subjective events noted - interval notes reviewed Objective Last 24 Hour Vital Signs Date Time Temp Pulse Resp B/P (MAP) Pulse Ox O2 Delivery O2 Flow Rate FiO2 12/26/16 15:03 Nasal Cannula 2.0 12/26/16 12:00 98.2 85 19 147/95 96 Nasal Cannula 2.0 12/26/16 11:25 Nasal Cannula 2.0 12/26/16 08:44 72 142/97 12/26/16 08:00 98.2 72 19 142/97 98 Nasal Cannula 2.0 12/26/16 04:00 97.3 89 19 119/68 97 Room Air 12/26/16 00:19 98.2 82 18 124/85 98 Room Air 12/25/16 20:00 96.8 78 18 106/71 91 Room Air Intake and Output 12/26/16 12/27/16 19:00 07:00 Intake Total 120 ml Output Total 3300 ml Balance -3180 ml Intake Oral 120 ml Hemodialysis UF 3300 ml Laboratory Tests 12/26/16 08:10: White Blood Count 6.4, Red Blood Count 3.54L, Hemoglobin 10.9L, Hematocrit 36.4L , Mean Corpuscular Volume 103H, Mean Corpuscular Hemoglobin 30.8, Mean Corpuscular Hemoglobin Concent 29.9L, Red Cell Distribution Width 19.1H, Platelet Count 69L, Mean Platelet Volume 8.6, Neutrophils (%) (Auto) , Lymphocytes (%) (Auto) , Monocytes (%) (Auto) , Eosinophils (%) (Auto) , Basophils (%) (Auto) , Differential Total Cells Counted 100, Neutrophils % ( Manual) 33L, Lymphocytes % (Manual) 54H, Monocytes % (Manual) 11H, Eosinophils % (Manual) 1, Basophils % (Manual) 1, Band Neutrophils 0, Platelet Estimate DecreasedL, Platelet Morphology Normal, Hypochromasia 1+, Anisocytosis 1+, Target Cells 1+, Stomatocytes 1+, Schistocytes 1+, Sodium Level 124L, Potassium Level 5.2H, Chloride Level 84L, Carbon Dioxide Level 29, Anion Gap 11, Blood Urea Nitrogen 22, Creatinine 3.1H, Estimat Glomerular Filtration Rate 18.4, Glucose Level 94, Uric Acid 6.8, Calcium Level 9.3, Phosphorus Level 4.1, Magnesium Level 2.0, Ferritin 440H, Total Bilirubin 2.3H, Direct Bilirubin 1.6H , Aspartate Amino Transf (AST/SGOT) 58H, Alanine Aminotransferase (ALT/SGPT) 75H , Alkaline Phosphatase 157H, C-Reactive Protein, Quantitative 4.1H, Pro-B-Type Natriuretic Peptide 68507X, Total Protein 6.5L, Albumin 3.2L, Globulin 3.3, Albumin/Globulin Ratio 0.9L Height (Feet): 5 Height (Inches): 4.00 Weight (Pounds): 200 General Appearance: no apparent distress Neck: normal alignment Cardiovascular: normal rate Respiratory/Chest: lungs clear Abdomen: normal bowel sounds Objective Current Medications Medications (Trade) Dose Ordered Sig/Donald Route PRN Reason Start Time Stop Time Status Last Admin Dose Admin Acetaminophen (Tylenol) 650 mg Q4H PRN ORAL fever>100.5 12/23/16 15:00 01/22/17 14:59 Albuterol/ Ipratropium (DuoNeb 0.5-3(2.5)mg/3ml) 3 ml Q6H PRN HHN dyspnea 12/23/16 15:30 12/28/16 15:29 Atenolol (Tenormin) 25 mg DAILY ORAL 12/24/16 09:00 01/23/17 08:59 12/26/16 08:44 Atorvastatin Calcium (Lipitor) 10 mg BEDTIME ORAL 12/23/16 21:00 01/22/17 20:59 12/25/16 21:21 Azithromycin 500 mg/Dextrose 275 ml @ 275 mls/hr Q24HRS IV 12/25/16 01:00 12/31/16 01:59 12/26/16 00:42 Cyclobenzaprine HCl (Flexeril) 5 mg THREE TIMES A DAY ORAL 12/23/16 18:00 01/22/17 17:59 12/26/16 13:00 Dextrose (Dextrose 50%) STAT PRN IV Hypoglycemia 12/25/16 18:45 01/24/17 18:44 Gabapentin (Neurontin) 300 mg BID ORAL 12/23/16 18:00 01/22/17 17:59 12/26/16 08:45 Morphine Sulfate (Morphine Sulfate) 1 mg Q4H PRN IVP For Pain 12/23/16 15:30 12/30/16 15:29 12/25/16 04:01 Ondansetron HCl (Zofran) 4 mg Q6H PRN IVP Nausea & Vomiting 12/23/16 15:00 01/22/17 14:59 Pantoprazole (Protonix) 40 mg DAILY ORAL 12/24/16 10:30 01/23/17 10:29 12/26/16 08:45 Polyethylene Glycol (Miralax) 17 gm HSPRN PRN ORAL Constipation 12/23/16 21:00 01/22/17 20:59 Zolpidem Tartrate (Ambien) 5 mg HSPRN PRN ORAL Insomnia 12/23/16 21:00 12/30/16 20:59 Item Value Date Time Bedside Blood Glucose 109 mg/dl 12/26/16 1130 Bedside Blood Glucose 85 mg/dl 12/26/16 0630 Bedside Blood Glucose 124 mg/dl H 12/25/16 2100 Bedside Blood Glucose 101 mg/dl 12/25/16 1630 MANDO ISAAC Dec 26, 2016 16:15
--- NOTE | 2016-12-27 13:41 | Discharge Summary ---
Discharge Summary Hospital Course Date of Admission Dec 23, 2016 at 12:07 Date of Discharge Dec 26, 2016 at 21:10 Admitting Diagnosis hypoglycemia KULDEEP Dean is a 61 year old female who was admitted on Dec 23, 2016 at 12:07 for Hypoglycemia Hospital Course dc summary #[id number] Discharge Condition Upon Discharge: stable Discharge Disposition Patient was discharged to [facility] Discharge Diagnoses: Discharge Instructions Discharge Instructions Special Instructions I have been assigned to complete a D/C Summary on this account. I was not involved in the patient management Joellen Kowalski NP (Vanchtein) Dec 27, 2016 13:41
--- NOTE | 2016-12-28 19:00 | Discharge Summary 2 SIG ---
DATE OF ADMISSION: 12/23/2016 DATE OF DISCHARGE: 12/26/2016 Reason For Admission: 61-year-old female presented to emergency room with altered level of consciousness associated with blood sugar of 29. Paramedics were unable to start IV. She was given IM glucagon with improvement in level of consciousness. At that time, she was able to tolerate some oral glucose solution, second blood sugar was in the 50s. The patient reported nausea, not eating well. The patient reported that she this was her third visit for the same problem in the last two weeks. The patient with end-stage renal disease, on hemodialysis . The patient denied any history of diabetes. She denied fever, vomiting, diarrhea, or dysuria. She admits to still making some urine. Workup in the emergency room revealed stable vital signs. No leukocytosis. Anemia with hemoglobin -10.7 and hematocrit -36.6. Troponin was negative. Sodium -127, BUN -19, creatinine -3.7, consistent with a history of end-stage renal disease. Glucose in ED was - 130. Elevated bilirubin: total bilirubin -2.2, direct bilirubin -1.5. AST - 127 and ALT- 143. Chest x-ray revealed no acute cardiopulmonary pathology. The patient was admitted for further management. INITIAL DIAGNOSES: 1. Acute encephalopathy secondary to hypoglycemia. 2. Hypoglycemia. 3. Anemia. 4. Liver failure. 5. End-stage renal disease, on hemodialysis. Hospital Stay: The patient was admitted. Nephrology, Endocrinology ID specialist and GI consults were requested. Per GI, anemia workup revealed stable iron, normal B12 and folate. Anemia workup indicated anemia of chronic disease. Hemoglobin and hematocrit were closely monitored, remained at the baseline. Noted elevated CEA- 4.9. LFTs were trending with small trend down in AST and ALT. Prior to transfer, AST -58 and ALT -75. Total and direct bilirubin without much changes. Alpha-fetoprotein within normal limits. Hepatitis panel was ordered and pending. Renal ultrasound revealed evidence of medical renal disease, but no hydronephrosis , it also showed incidental finding of gallstones, incidental finding of ascites, and mildly dilated common bile duct. Subsequently, abdominal ultrasound was ordered, which revealed dilated common bile duct, gallbladder wall thickening, hepatomegaly, bilateral echogenic kidneys consistent with medical renal disease. HIDA scan was done subsequently and revealed no evidence of cystic duct obstruction/acute cholecystitis. Common bile duct was patent. Recently described gallbladder wall thickening was presumably due to the hemodynamic derangement. Hepatitis panel was pending. Dialysis was done as per game technician, who closely monitored renal parameters, electrolytes, and fluid volume. The patient noted to have a low albumin as well. ID followed the patient. The patient was on empiric antibiotic for bronchitis. Chest x-ray revealed no evidence of acute cardiopulmonary pathology. Supplemental oxygen provided as needed to keep saturation above 92% . The patient was on supplemental oxygen of nasal cannula. Pulmonary toilet was provided as needed. No leukocytosis. Urine culture revealed mixed gram- positive organisms. Sputum culture was not collected. Blood cultures were negative. Extension Worker initially seen the patient. Hemoglobin A1c is 4.6, which does not qualify the patient for diabetes. The patient was initially on the IV fluids with dextrose. Blood sugar was stable. Workup started to rule out adrenal insufficiency. Noted mildly elevated TSH, per Endocrinology could be due to the state of illness. Extension Worker ordered to repeat TSH and free T4. However, due to the insurance purposes, the patient required transfer to [facility]. The patient was stable for transfer. FINAL DIAGNOSES: 1. Acute encephalopathy secondary to hypoglycemia, resolved 2. Recurrent hypoglycemia, resolved 3. Anemia of chronic renal disease. 4. Bronchitis. 5. End-stage renal disease, on hemodialysis. 6. Liver failure. 7. Elevated CEA. 8. Cholestasis. 9. Hypoalbuminemia. Discharge Medications: List of medications was sent to accepting facility. Discharge Instructions: The patient was transferred to [facility]. Follow up with medical doctor at the facility. Darius Haney M.D. I have been assigned to dictate discharge summary on this account and I was not involved in the patient's management. Joellen Kowalski (Vanchtein) N.PHubert DR: KATIE JOB#: [id number] CC: ENRIKE
--- NOTE | 2016-12-29 13:11 | Diagnostic Imaging Report ---
Indication: Dilated biliary ducts. Gallstone. Abdominal pain. Abnormal liver function tests. Renal failure. Unable to breath-hold. Technique: MRI of the abdomen was performed in a 1.5 Tracey magnet. Pulse sequences obtained include coronal and axial T2 single shot fast spin echo breathhold and respiratory gated coronal T2 3-D M.R.C.P.; this data set was displayed in different projections or MIPs. In addition, multiple coronal oblique thin T2 weighted, fat saturated SE sequences obtained through the CBD. Comparison: None Findings: The study is very limited because of inability to breath-hold. There is a mild amount of ascites present. There is thickening of the gallbladder wall gallstones present. The common bile duct is somewhat prominent. There is no obvious choledocholithiasis appreciated on this study. No hydronephrosis appreciated. A small right renal cyst noted. Diffuse subcutaneous edema noted. Impression: Very limited study demonstrating no obvious choledocholithiasis. Gallstones with gallbladder wall thickening. Cholecystitis not excluded. Mild ascites Right renal cysts Anasarca
== END 2016-12-26 21:10 | disposition short-term general hospital (02) | DRG 424 ==
LOC: EDBD 08:06 → EMR 08:31 → 4E 12:07 → EDBEDREQ 12:29 → 4E 12-24 13:22
PROC: 5A1D60Z (ICD-10-PCS; principal; 2016-12-24)
DX: E16.2 Hypoglycemia, unspecified (principal); G93.40 Encephalopathy, unspecified; N18.6 End stage renal disease; I95.9 Hypotension, unspecified; K83.1 Obstruction of bile duct; K72.90 Hepatic failure, unspecified without coma; E88.09 Other disorders of plasma-protein metabolism, not elsewhere classified; Z99.2 Dependence on renal dialysis; Z88.6 Allergy status to analgesic agent; Z88.8 Allergy status to other drugs, medicaments and biological substances; D63.1 Anemia in chronic kidney disease; J40 Bronchitis, not specified as acute or chronic; R97.0 Elevated carcinoembryonic antigen [CEA]; J44.9 Chronic obstructive pulmonary disease, unspecified
CPT/HCPCS: 36415; 71010; 74181; 76700; 76775; 78266; 80053; 80061; 81001; 82105; 82248; 82378; 82550; 82607; 82728; 82746; 82962; 82977; 83036; 83540; 83550; 83605; 83615; 83735; 83880; 84100; 84133; 84300; 84443; 84484; 84550; 85007; 85025; 85044; 85060; 85610; 85651; 85730; 86140; 86705; 86709; 86803; 87040; 87081; 87086; 87340; 89050; 93005; J1815; J2405